=== PATIENT | female | born 1945 | race Caucasian/White ===

== ENCOUNTER 2023-11-06 11:10 | Outpatient (AMB) | payer OTHER, SELFPAY ==
--- NOTE | 2023-11-06 11:43 | A.OFFPC_ITS ---
Vital Signs 11/06/23 11:46 11/06/23 11:48 Height 5 ft 2 in Weight 171 lb 2 oz BMI 31.3 BP 148/72 H 132/74 Blood Pressure Location Rt brachial Lt brachial Position Sitting Sitting Respiration 16 Pulse 66 Pulse Source Pulse Oximeter Temp 97.7 F Temp Source Oral Pulse Oximetry (%) 99 Oxygen Delivery Method Room Air Intake Visit Reasons: SILK [employer] HAT B[employer]KER-VISIT Allergies No Known Allergies Allergy (Verified 11/06/23 11:43) Medication List - Last Reconciled 11/06/23 by MARIANA Hairston blood sugar diagnostic (Vortaluch Ultra Test strips) As directed brimonidine 0.1% (Alphagan P) 1 drp ophthalmic-Right BID carvedilol 6.25 mg PO BID furosemide 40 mg PO DAILY ketoconazole 2% 1 appl topical BID latanoprostene bunod 0.024% (Vyzulta) 1 drp ophthalmic (eye) BEDTIME losartan 25 mg PO DAILY metformin ER 1,000 mg PO BID pioglitazone 15 mg PO DAILY Tobacco use date assessed: 11/06/23 Fall risk assessment: No Falls in past year Last assessed Fall Risk: 11/06/23 Dental Screening Dental Screen Date: 11/06/23 Did you have a dental visit in the last 12 months?: No Did you have a dental problem in the last 6 months where you did not have access to dental care?: No Was dental information given to patient?: Patient declined HPI HPI Comments History of Present Illness Details 78 y/o F renal stones, BLE edema, obesit y, HTN, DM2, Rheumatic fever in childhood, HLD, OA, Urinary incont, glaucoma s/p TKR 2012 bilat Health Maintenance: Colon reports done 2020 Mammo 2022 PAP DEXA DME HgA1c Specialists: Urology - annual f/u next 07/2024 Here today new patient. No medical records. States has swelling of BLE that was present for 2 weeks, left first and then right. Resolved on own. Had renal stones - treated at [facility]. May 2023 had 2 removed then Jul 2023 had the other removed States last time she was seen by PCP was 2 years ago at [facility]) [facility] Surgical History (Updated 11/06/23 @ 13:45 by MARIANA Hairston) History of knee replacement Social History (Updated 11/06/23 @ 12:06 by Stephanie Viveros CMA) Housing: Apartment Patient Tobacco Use Status: Never used Tobacco e-Cigarette/Vaping Use: Never Used Second Hand Smoke Exposure: No service: No Current occupational status: retired Cognitive needs: No Hearing needs: No Vision needs: Yes Questionnaire PHQ-9 Over the last 2 weeks, how often have you been bothered by any of the following problems? 1. Little interest or pleasure in doing things: not at all 2. Feeling down, depressed, or hopeless: not at all 3. Trouble falling or staying asleep, or sleeping too much: not at all 4. Feeling tired or having little energy: not at all 5. Poor appetite or overeating: not at all 6. Feeling bad about yourself - or that you are a failure or have let yourself or your family down: not at all 7. Trouble concentrating on things, such as reading the newspaper or watching television: not at all 8. Moving or speaking so slowly that other people could have noticed. Or the opposite - being so fidgety or restless that you have been moving around a lot more than usual: several days 9. Thoughts that you would be better off or of hurting yourself in some way: not at all Total score: 1 Depression Screening Interpretation: Negative Depression Screening Done: Yes 51429 - PHQ-9 Billing: Yes Source: Developed by Drs. Kenn Landa, Heidi Fernandez, Eduardo Gold and colleagues, with an educational hesham from [employer]. Thrive Questionnaire Date Thrive assessed: 11/06/23 I am a: Patient What is your living situation today?: I have a steady place to live Within the past 12 months, did the food you bought not last and you didn't have the money to get more?: Never true Within the past 12 months, did you worry whether your food would run out before you got money to buy more?: Never true Do you have trouble paying for medicines?: No Do you have trouble getting transportation to medical appointments?: No Do you have trouble paying your heating and electricity bill?: No Do you have trouble taking care of your child, family member or friend?: No Do you have trouble with day-to-day activities such as bathing, preparing meals, shopping, managing finances, etc.?: No Are you currently unemployed and looking for a job?: No Are you interested in more education?: No Please select the resources that you would like help with: None Currently or been in a relationship where the following occur: no concerns reported THRIVE Score: 0 AUDIT C Alcohol Use Questionnaire (AUDIT-C) 1. How often do you have a drink containing alcohol?: Never 3. How often do you have six or more drinks on one occasion?: Never Total Score: 0 Score Reviewed/Action Taken: Yes TAWANNA-7 AMB Questionnaire TAWANNA-7 Date TAWANNA - 7 assessed: 11/06/23 Feeling nervous, anxious, or on edge: 0 = Not at all Not being able to stop or control worryin = Not at all Worrying too much about different things: 0 = Not at all Trouble relaxin = Not at all Being so restless that it is hard to sit still: 0 = Not at all Becoming easily annoyed or irritable: 0 = Not at all Feeling afraid as if something awful might happen: 0 = Not at all Total TAWANNA-7 score (0-4 normal; 5-9 mild; 10-14 moderate; 15-21 severe): 0 Source: Developed by Drs. Kenn Landa, Heidi Fernandez, Eduardo Gold and colleagues, with an educational hesham from [employer]. TAWANNA-7 Assessment Billing TAWANNA-7 Assessment Tool: TAWANNA-7 Assessment 94938 Review of Systems Const All systems reviewed & are unremarkable except as noted in HPI and below Physical exam (Primary Care) Vital Signs: Last Vital Signs Temp 97.7 F 11/06/23 11:46 Pulse 66 11/06/23 11:46 Resp 16 11/06/23 11:46 BP 132/74 11/06/23 11:48 Pulse Ox 99 11/06/23 11:46 Oxygen Delivery Method Room Air 11/06/23 11:46 BMI result Body Mass Index 31.3 BMI Assessment/Plan discussion: High BMI High, discussed plan: lifestyle Tobacco/Smoking Status: Tobacco use Status Tobacco use date assessed 11/06/23 11/06/23 11:50 Patient Tobacco Use Status Never used Tobacco 11/06/23 12:06 e-Cigarette/Vaping Use Never Used 11/06/23 12:06 PHQ-9: PHQ-9 Score PHQ-9: Total score 1 11/06/23 12:07 Depression Screening Interpretation: Negative Thrive Assessment: Date of Thrive Assessment Date Thrive assessed 11/06/23 11/06/23 12:07 Currently or been in a relationship where the following occur: no concerns reported Const Other: awake alert younger than stated age pleasant and cooperative MMM RRR LS CTAB BLE hairless, decreased PP, + varicose veins, trace pedal edema bilat, fungal rash L anterior foot & in between toes, nails thickened Assessment and Plan Assessment & Plan (1) Diabetes mellitus type 2 with atherosclerosis of arteries of extremities: Comment: On metformin ER 1000 mg p.o. b.i.d. and pioglitazone 50 mg p.o. daily. Check hemoglobin A1c. We will need to obtain records for diabetic eye exam. Code(s): E11.51 - Type 2 diabetes mellitus with diabetic peripheral angiopathy without gangrene; I70.209 - Unspecified atherosclerosis of [place] arteries of extremities, unspecified extremity (2) Class 1 obesity with serious comorbidity and body mass index (BMI) of 31.0 to 31.9 in adult: Comment: Lifestyle modification encouraged Code(s): E66.9 - Obesity, unspecified; Z68.31 - Body mass index [BMI] 31.0-31.9, adult Qualifiers: Obesity type: unspecified obesity type Qualified Code(s): E66.9 - Obesity, unspecified; Z68.31 - Body mass index [BMI] 31.0-31.9, adult (3) Hypertension complicating diabetes: Comment: Goal less than 130/80, on losartan 25 mg p.o. daily, furosemide 40 mg p.o. daily, carvedilol 6.25 mg p.o. b.i.d.. Blood pressure at goal. Continue Code(s): E11.59 - Type 2 diabetes mellitus with other circulatory complications; I15.2 - Hypertension secondary to endocrine disorders (4) Glaucoma: Comment: Currently managed on latanoprost and Alphagan. We will need to obtain records to further specify her glaucoma condition. Code(s): H40.9 - Unspecified glaucoma Qualifiers: Glaucoma type: unspecified Laterality: unspecified laterality Qualified Code(s): H40.9 - Unspecified glaucoma (5) Urinary incontinence: Comment: Encouraged hygiene, use of incontinence pads. Code(s): R32 - Unspecified urinary incontinence Qualifiers: Urinary Incontinence type: mixed stress and urge incontinence Qualified Code(s): N39.46 - Mixed incontinence (6) Hyperlipidemia associated with type 2 diabetes mellitus: Comment: LDL goal less than 70. Not currently on a statin. We will need to obtain labs and start statin Code(s): E11.69 - Type 2 diabetes mellitus with other specified complication; E78.5 - Hyperlipidemia, unspecified (7) Rheumatic fever: Comment: Reports a history of this in childhood. Reports that she has never had an echocardiogram and denies any valvular involvement. We will update echocardiogram. Code(s): I00 - Rheumatic fever without heart involvement (8) Edema: Comment: Affecting bilateral lower extremities. The patient is taking Lasix 40 mg daily. She denies a history of congestive heart failure however is a poor historian. We will update an echocardiogram, do some imaging of her lower extremities and check a proBNP today. Code(s): R60.9 - Edema, unspecified Qualifiers: Edema type: localized Qualified Code(s): R60.0 - Localized edema (9) PVD (peripheral vascular disease): Comment: Not currently on a statin or aspirin. We will check MANDO studies and returned to the office to discuss treatment. May need a referral to vascular given the varicosities and edema. Fungal rash noted to her left foot. Start ketoconazole until clear. Code(s): I73.9 - Peripheral vascular disease, unspecified Plan This note is constructed using voice recognition software. While every effort has been made to ensure accuracy in physical plant employee, still errors may have been included Sometimes, these errors may affect the content or meaning of the given sentence . Total time spent caring for the patient today was 50 minutes. This includes time spent before the visit reviewing the chart, time spent during the visit, and time spent after the visit on documentation Orders: Orders Comprehensive Met. Panel Today E11.51 - Type 2 diabetes mellitus with diabetic peripheral angiopathy without gangrene, I70.209 - Unspecified atherosclerosis of [place] arteries of extremities, unspecified extremity Hemoglobin A1c Today E11.51 - Type 2 diabetes mellitus with diabetic peripheral angiopathy without gangrene, I70.209 - Unspecified atherosclerosis of [place] arteries of extremities, unspecified extremity TSH reflex Free T4 Today E11.51 - Type 2 diabetes mellitus with diabetic peripheral angiopathy without gangrene, I70.209 - Unspecified atherosclerosis of [place] arteries of extremities, unspecified extremity CA echo transthoracic complete Today R60.9 - Edema, unspecified LDL Cholesterol Direct Today E11.51 - Type 2 diabetes mellitus with diabetic peripheral angiopathy without gangrene, I70.209 - Unspecified atherosclerosis of [place] arteries of extremities, unspecified extremity Vitamin D 1,25 dihydroxy Today E11.51 - Type 2 diabetes mellitus with diabetic peripheral angiopathy without gangrene, I70.209 - Unspecified atherosclerosis of [place] arteries of extremities, unspecified extremity Microalbumin, Random (w Creat) Today E11.51 - Type 2 diabetes mellitus with diabetic peripheral angiopathy without gangrene, I70.209 - Unspecified atheroscl erosis of [place] arteries of extremities, unspecified extremity NT-proBNP Today E11.51 - Type 2 diabetes mellitus with diabetic peripheral angiopathy without gangrene, I70.209 - Unspecified atherosclerosis of [place] arteries of extremities, unspecified extremity US MANDO complete Today R60.9 - Edema, unspecified Medications: New ketoconazole 2% apply to left foot until healed 1 appl topical BID 60 grams 1RF Patient Instructions: Return to the office in 6-8 weeks to follow up on your lab results as well as the echocardiogram and ultrasound of your bilateral lower extremities. Continue to take all medications as directed. Use the antifungal cream to your left foot until the rash is cleared. Coding Level of Care Code New Pt Level 4 (48911) Diagnoses Diabetes mellitus type 2 with atherosclerosis of arteries of extremities E11.51; I70.209 Class 1 obesity with serious comorbidity and body mass index (BMI) of 31.0 to 31.9 in adult, unspecified obesity type E66.9; Z68.31 Obesity type: unspecified obesity type Hypertension complicating diabetes E11.59; I15.2 Glaucoma, unspecified glaucoma type, unspecified laterality H40.9 Glaucoma type: unspecified Laterality: unspecified laterality Mixed stress and urge urinary incontinence N39.46 Urinary Incontinence type: mixed stress and urge incontinence Hyperlipidemia associated with type 2 diabetes mellitus E11.69; E78.5 Rheumatic fever I00 Localized edema R60.0 Edema type: localized PVD (peripheral vascular disease) I73.9 Additional Codes TAWANNA-7 Assessment Billing - TAWANNA-7 Assessment Tool: TAWANNA-7 Assessment [id number] ( [id number])
[2023-11-06 11:46] VITALS: BP 148/72; PULSE 66; RESP 16; TEMP 36.5; O2SAT 99; BMI 31.3
[2023-11-06 11:48] VITALS: BP 132/74
== END 2023-11-06 12:33 | disposition home or self-care (01) ==
PROVIDERS: PCP Nurse Practitioner Family; Visit Provider Nurse Practitioner Family
DX: E11.51 Type 2 diabetes mellitus with diabetic peripheral angiopathy without gangrene (principal); I70.209 Unspecified atherosclerosis of native arteries of extremities, unspecified extremity; E11.59 Type 2 diabetes mellitus with other circulatory complications; E11.69 Type 2 diabetes mellitus with other specified complication; I73.9 Peripheral vascular disease, unspecified; E66.9 Obesity, unspecified; Z68.31 Body mass index [BMI] 31.0-31.9, adult; H40.9 Unspecified glaucoma; I15.2 Hypertension secondary to endocrine disorders; N39.46 Mixed incontinence; E78.5 Hyperlipidemia, unspecified; I00 Rheumatic fever without heart involvement
CPT/HCPCS: 99204

== ENCOUNTER 2023-11-06 12:13 | Outpatient (REF) | payer OTHER, SELFPAY ==
[2023-11-06 15:10] LABS: Estimated Average Glucose 151 mg/dL; Hemoglobin A1C 152.5124 umol/L; Hemoglobin A1c % 6.9 % (<6.0)
[2023-11-06 15:18] LABS: Alanine Aminotransferase 6 U/L (0-31); Albumin Level 4.4 g/dL (3.5-5.0); Alkaline Phosphatase 106 U/L (39-117); Anion Gap 15 (12-20); Aspartate Amino Transferase 10 U/L (5-31); Bilirubin Total 0.3 mg/dL (0.0-1.0); Blood Urea Nitrogen 31 mg/dL (9-16); Calcium 9.8 mg/dL (8.4-10.2); Carbon Dioxide 21 mmol/L (22-29); Chloride 109 mmol/L (96-108); Estimated Glomerular Filt Rate 51; Glucose Random 128 mg/dL (60-115); Potassium 4.2 mmol/L (3.3-5.1); Sodium 141 mmol/L (135-145); Total Protein 7.8 g/dL (6.5-8.0)
[2023-11-06 15:22] LABS: Creatinine Urine 162.38 mg/dL; Microalbum/Creatinine Ratio Ur 44.9 ug/mg cr (<30)
[2023-11-06 15:36] LABS: TSH reflex Free T4 1.92 uIU/mL (0.32-4.0)
[2023-11-08 06:43] LABS: LDL Cholesterol Direct 122 mg/dL (<100)
[2023-11-11 16:27] LABS: NT-proBNP 544 pg/mL (<450)
[2023-11-12 16:14] LABS: VITAMIN D (1,25 OH) D3 35 pg/mL; Vit D (1,25-Dihydroxy) Total 35 pg/mL (18-72); Vitamin D (1,25 OH) D2 <8 pg/mL
== END 2023-11-06 12:14 | disposition home or self-care (01) ==
LOC: HO.WFDLDS 12:13
PROVIDERS: Visit Provider Nurse Practitioner Family
DX: E11.51 Type 2 diabetes mellitus with diabetic peripheral angiopathy without gangrene (principal); I70.209 Unspecified atherosclerosis of native arteries of extremities, unspecified extremity
CPT/HCPCS: 36415; 80053; 82043; 82570; 82652; 83036; 83721; 83880; 84443

== ENCOUNTER 2023-11-21 14:22 | Outpatient (REF) | payer OTHER, SELFPAY ==
--- NOTE | ~2023-11-21 | US_ITS ---
EXAMINATION: Noninvasive assessment of the arteries of both lower extremities to include a single level PVR exam and ANKLE BRACHIAL INDICES (ABIs). CLINICAL INFORMATION: Lower extremity edema TECHNIQUE: The ankle/brachial indices of the distal posterior tibial and the dorsalis pedis arteries were obtained of the lower extremity arterial system bilaterally; along with pressures and pulse volume recordings at the ankle level. The study was performed at rest. COMPARISON: None FINDINGS: 1. ANKLE-BRACHIAL INDICES: RIGHT: 1.14 LEFT: 1.13 2. ANKLE PVR WAVEFORMS: RIGHT: Normal LEFT: Normal US/US MANDO complete IMPRESSION: Normal noninvasive arterial evaluation
== END 2023-11-21 14:23 | disposition home or self-care (01) ==
LOC: HO.US 14:22
PROVIDERS: PCP Nurse Practitioner Family; Visit Provider Nurse Practitioner Family
DX: R60.9 Edema, unspecified (principal)
CPT/HCPCS: 93923

== ENCOUNTER → 2023-11-29 13:49 | Outpatient (REF) | payer OTHER, SELFPAY ==
--- NOTE | 2023-11-29 13:56 | CA_ITS ---
Transthoracic Echocardiogram Patient (Last, First, Middle): Bee Rivera, Gender: Female Date of : 1945 Age: 78 Procedure Date: 11/29/2023 Procedure Type: Transthoracic Echocardiogram Location: OP Height: 157.48 cm Weight: 77.57 kg BSA: 1.79 m2 Heart Rate: 67 bpm BP: 132 / 74 mmHg Public Records Officer: SB Referring MD: Desirae Guzmán [facility] Garden Implement Mechanic: Michale Fajardo MD Symptoms: R60.9 - Edema, unspecified Study Quality: Fair ECG Rhythm: Sinus Conclusions: - 1. Mildly reduced LV ejection fraction 45-50% with impaired relaxation filling pattern 2. Cardiac valvular Doppler within normal limits 3. Normal RV systolic pressure 4. No gross pericardial effusion Findings Procedure Information The quality of the study was technically difficult. The study quality is limited by patients body habitus. Left Ventricle Normal left ventricular cavity size. There is normal left ventricular wall thickness. The left ventricular systolic function is mildly decreased. The visually estimated ejection fraction is between 45-50%. Spectral Doppler is indicative of an impaired relaxation filling pattern. E/E prime ratio is between 8 and 15 consistent with indeterminate filling pressures. Wall Motion Rest Echo Findings The basal inferior and basal inferoseptal segments are akinetic. All other scored wall segments showed normal motion. Right Ventricle Normal right ventricular cavity size and systolic function. Atria The left atrium is mildly dilated. There is no evidence of interatrial shunt. The right atrium is normal in size. Aortic Valve There is mild calcification of the aortic valve. There is no aortic valve stenosis. There is no aortic valve regurgitation. Mitral Valve There is mild anterior and posterior mitral leaflet thickening. There is mild mitral annular calcification. There is trace mitral valve regurgitation. There is no mitral valve stenosis. Pulmonic Valve The pulmonic valve was not well visualized. Tricuspid Valve Likely normal tricuspid valve structure and function. There is trace tricuspid valve regurgitation. The right ventricular systolic pressure is normal. The right ventricular systolic pressure is 22 mmHg. Normal right atrial pressure. There is no evidence of pulmonary hypertension. Great Vessels All visible segments of the aorta are normal in size. There is no dilatation of the ascending aorta measuring 3.30 cm. Venous The inferior vena cava is normal in size and collapses greater than 50% with inspiration. Pericardium/Pleural There is no evidence of pericardial effusion. Prior Study Comparison No prior study available for comparison. Measurements 2D Linear Measurements IVSd: 1.01 0.6-0.9/0.6-1.0 cm LVIDd: 5.46 3.9-5.3/4.2-5.9 cm LVIDd Index: 3.05 2.4-3.2/2.2-3.1 cm/m2 LVIDs: 4.03 2.0-3.6 cm LVPWd: 0.87 0.7-1.1 cm LA Diam: 4.00 2.7-3.8/3.0-4.0 cm LAIDs Index: 2.23 1.5-2.3 cm/m2 LV Mass: 241.65 67-162/88-224 g LV Mass Index: 135.00 43-95/49-115 g/m2 LVOT Diam: 2.10 3.0+(-)1.3 cm 2D Systolic Function EF 4C: 40.60 >55% EF 2C: 49.70 >55% EF BiP: 46.80 >55% Mitral Valve MV Pk E: 0.51 MV PK A: 0.86 MV Decel Time: 210.00 E/A: 0.60 E'Lateral: 4.03 E'Medial: 2.94 E/E' Med: 17.30 E/E' Lat: 12.70 PHT: 61.00 MVA PHT: 3.61 Decel Towns: 2.43 Aortic Valve AoV Pk Will: 1.23 AoV Pk Grad: 6.00 MITALI: 2.13 LVOT LVOT Pk Will: 0.76 LVOT Mn Will: 0.53 LVOT VTI: 0.18 LVOT Pk Grad: 2.00 LVOT Mn Grad: 1.00 LVOT Diam: 2.10 LVOT Area: 3.46 Diastolic Function MV Pk E: 0.51 MV Pk A: 0.86 E/A: 0.60 E'Medial: 2.94 E/E' Med: 17.30 E' Laterial: 4.03 E/E' Lat: 12.70 Right Ventricle TAPSE (mm): 13.90 TVS' Will: 9.57 Tricuspid Valve TR Pk Will: 2.19 TR Pk Grad: 19.00 RA Press: 3.00 RVSP: 22.00 Great Vessels Aorta Sinus of Valsalva: 3.40 2.0-3.5 cm Ao Asc: 3.30 2.1-3.4 cm Ao Arch: 2.70 Pulmonary Veins Pulm Vein S/D 2.00 Pulmonary Valve PV Pk Will: 0.76 Peak PV Grad: 2.00 Updated in Other Vendor System with Status of Final Michael Fajardo MD electronically signed on 11/29/2023 4:53:32 PM with status of Final
== END ==
LOC: HO.CARD 13:49
PROVIDERS: PCP Nurse Practitioner Family; Visit Provider Nurse Practitioner Family
DX: R60.9 Edema, unspecified (principal)
CPT/HCPCS: 93306

== ENCOUNTER → 2023-11-29 13:56 | Outpatient (BNV) | payer OTHER, SELFPAY | PROVIDERS: PCP Nurse Practitioner Family; Visit Provider Internal Medicine Cardiovascular Disease | DX: I35.8 Other nonrheumatic aortic valve disorders (principal); I34.81 Nonrheumatic mitral (valve) annulus calcification | CPT/HCPCS: 93306 ==

== ENCOUNTER 2023-12-29 09:45 | Outpatient (AMB) | payer OTHER, SELFPAY ==
--- NOTE | 2023-12-29 10:02 | MHC.PC.OV ---
Vital Signs 12/29/23 10:16 Height 4 ft 11.45 in Weight 171 lb 4 oz BMI 34.1 BP 126/66 Blood Pressure Location Rt brachial Position Sitting Respiration 22 H Pulse 69 Pulse Source Pulse Oximeter Pulse Oximetry (%) 97 Oxygen Delivery Method Room Air Intake Visit Reasons: 6-8 weeks FU labs, echo and vascular imaging Intake Note: follow up Is last menstrual period known: No Post menopausal: Yes Patient : No Allergies No Known Allergies Allergy (Verified 12/29/23 10:07) Medication List - Last Reconciled 12/29/23 by Desirae Guzmán, [employer]UTTLE [employer]ENEERING SUPERVISOR- atorvastatin 80 mg PO BEDTIME blood sugar diagnostic ([employer] Ultra Test strips) As directed carvedilol 6.25 mg PO BID carvedilol 6.25 mg PO BID furosemide 40 mg PO DAILY ketoconazole 2% 1 appl topical BID lisinopril 20 mg PO DAILY metformin ER 1,000 mg PO BID Tobacco use date assessed: 12/29/23 Fall risk assessment: No Falls in past year Dental Screening Dental Screen Date: 12/29/23 Did you have a dental visit in the last 12 months?: No Did you have a dental problem in the last 6 months where you did not have access to dental care?: No Was dental information given to patient?: Patient declined HPI HPI Comments History of Present Illness Details 78 y/o F renal stones, BLE edema, obesity, HTN, DM2, Rheumatic fever in childhood, HLD, OA, Urinary incont, glaucoma, ckd 3a s/p TKR 2012 bilat Health Maintenance: Colon reports done 2020 Mammo 2022 PAP DEXA DME records requested HgA1c up to date Specialists: Urology - annual f/u next 07/[address] Nation Ophthalmology Here today for routine follow up of chronic conditions. I reviewed with her the results of her echocardiogram as well as the ultrasound of her lower extremities. In addition I did review her labs with her. In regards to the echocardiogram she tells me that she is active with Cardiology. I did not know that prior to today. States she is scheduled to have stress test but does not want this to be done; cannot exercise and does not want the injection, had this in the past & did not tolerate. She does not want me to call Cards to let them know about this. HOwever is ok w/ me faxing over a copy of the recent Echo. No longer having any swelling in BLE; using the Lasix only as needed. Has not needed since I last saw her. LDL goal less than 70. She IS on a statin, atorvastatin 80mg QD. However her LDL is not at goal. She is also on an ACEI Lisinopril 20mg and her blood pressure is well controlled. She has very mild elevation in her microalbumin. Fungal rash noted to her left foot resolved with ketoconazole Diabetes well controlled on metformin. Tells me today she needs a new prescription for freestyle Lite glucometer test strips and lancets. New complaints of: Nose is running all of the time. Clear liquid. Has not used any @ home treatment to help. Boil to her right shoulder that started a few days ago. Reports that she gets these a few times a year. The areas painful and has purulent drainage. Labs from 11/08/2023 show normal electrolytes, BUN 31, creatinine 1.05, EGFR 51, random glucose 128, hemoglobin A1c 6.9%, normal LFTs, pro BNP mildly elevated 544, direct LDL 122, vitamin-D normal, TSH 1.92, elevated urine microalbumin creatinine ratio 44.9 Exam: awake alert younger than stated age pleasant and cooperative scleras nonicteric bilat TM intact and clear bilat Nares with clear drainage bilat, turbinates pale and edematous Post nasal gtt MMM RRR LS CTAB BLE hairless, decreased PP, + varicose veins, no pedal edema bilat, fungal rash L anterior foot & in between toes (resolved), nails thickened Right anterior shoulder is a soft tissue cyst, erythematous, foul smelling, mildly warm to touch Plan: Stop atorvastatin 80mg and start rosuvastatin 20mg Start flonase to help w/ chronic rhinitis Start doxycycline for boil on R shoulder, apply warm moist comps to area. RTO directions provided. New RX for freestyle lite glu with strips and lancets sent Continue all of the medications as directed. If any worsening of renal function or microalbuminuria could consider adding an SGLT2 to at the next office visit. Fax Echo to Dr Nation, please /fu with them re: stress testing RTO in Mar/Apr for routine fu with labs done 1 week before appt Total time spent caring for the patient today was 40 minutes. This includes time spent before the visit reviewing the chart, time spent during the visit, and time spent after the visit on documentation This note is constructed using voice recognition software. While every effort has been made to ensure accuracy in corn miller, still errors may have been included Sometimes, these errors may affect the content or meaning of the given sentence . [facility] Surgical History (Updated 11/06/23 @ 13:45 by Desirae Guzmán [facility]) History of knee replacement Social History (Updated 12/29/23 @ 10:13 by Eric Álvarez) Housing: Apartment Patient Tobacco Use Status: Never used Tobacco e-Cigarette/Vaping Use: Never Used Second Hand Smoke Exposure: No service: No Current occupational status: retired Cognitive needs: No Hearing needs: No Vision needs: Yes Questionnaire Thrive Questionnaire Date Thrive assessed: 11/06/23 TAWANNA-7 AMB Questionnaire TAWANNA-7 Date TAWANNA - 7 assessed: 11/06/23 Source: Developed by Drs. Kenn Landa, Heidi Fernandez, Eduardo Gold and colleagues, with an educational hesham from [employer]. Physical exam (Primary Care) Vital Signs: Last Vital Signs Pulse 69 12/29/23 10:16 Resp 22 H 12/29/23 10:16 BP 126/66 12/29/23 10:16 Pulse Ox 97 12/29/23 10:16 Oxygen Delivery Method Room Air 12/29/23 10:16 BMI result Body Mass Index 34.1 Tobacco/Smoking Status: Tobacco use Status Tobacco use date assessed 12/29/23 12/29/23 10:13 Patient Tobacco Use Status Never used Tobacco 12/29/23 10:13 e-Cigarette/Vaping Use Never Used 12/29/23 10:13 Thrive Assessment: Date of Thrive Assessment Date Thrive assessed 11/06/23 12/29/23 10:02 Results Reviewed Results Reviewed: 11/2023 normal vascular US 11/2023 Echo Wall Motion Rest Echo Findings The basal inferior and basal inferoseptal segments are akinetic. All other scored wall segments showed normal motion. Right Ventricle Normal right ventricular cavity size and systolic function. Atria The left atrium is mildly dilated. There is no evidence of interatrial shunt. The right atrium is normal in size. Aortic Valve There is mild calcification of the aortic valve. There is no aortic valve stenosis. There is no aortic valve regurgitation. Mitral Valve There is mild anterior and posterior mitral leaflet thickening. There is mild mitral annular calcification. There is trace mitral valve regurgitation. There is no mitral valve stenosis. Pulmonic Valve The pulmonic valve was not well visualized. Tricuspid Valve Likely normal tricuspid valve structure and function. There is trace tricuspid valve regurgitation. The right ventricular systolic pressure is normal. The right ventricular systolic pressure is 22 mmHg. Normal right atrial pressure. There is no evidence of pulmonary hypertension. Great Vessels All visible segments of the aorta are normal in size. There is no dilatation of the ascending aorta measuring 3.30 cm. Venous The inferior vena cava is normal in size and collapses greater than 50% with inspiration. Pericardium/Pleural There is no evidence of pericardial effusion. Assessment and Plan Assessment & Plan (1) Diabetes mellitus type 2 with atherosclerosis of arteries of extremities: Comment: On metformin ER 1000 mg p.o. b.i.d., We will need to obtain records for diabetic eye exam. Code(s): E11.51 - Type 2 diabetes mellitus with diabetic peripheral angiopathy without gangrene; I70.209 - Unspecified atherosclerosis of sycuan arteries of extremities, unspecified extremity (2) Hypertension complicating diabetes: Comment: Goal less than 130/80, on losartan 25 mg p.o. daily, carvedilol 6.25 mg p.o. b.i.d.. Blood pressure at goal. Continue Code(s): E11.59 - Type 2 diabetes mellitus with other circulatory complications; I15.2 - Hypertension secondary to endocrine disorders (3) Hyperlipidemia associated with type 2 diabetes mellitus: Comment: LDL goal less than 70. Code(s): E11.69 - Type 2 diabetes mellitus with other specified complication; E78.5 - Hyperlipidemia, unspecified (4) CKD (chronic kidney disease) stage 3, GFR 30-59 ml/min: Code(s): N18.30 - Chronic kidney disease, stage 3 unspecified Qualifiers: Chronic kidney disease stage 3 subtype: stage 3a (GFR 45-59) Qualified Code(s): N18.31 - Chronic kidney disease, stage 3a (5) Chronic rhinitis: Code(s): J31.0 - Chronic rhinitis (6) Acute cellulitis: Code(s): L03.90 - Cellulitis, unspecified Orders: Orders Comprehensive Met. Panel 03/05/24 E11.51 - Type 2 diabetes mellitus with diabetic peripheral angiopathy without gangrene, E11.59 - Type 2 diabetes mellitus with other circulatory complications, E11.69 - Type 2 diabetes mellitus with other specified complication, E78.5 - Hyperlipidemia, unspecified, I15.2 - Hypertension secondary to endocrine disorders, I70.209 - Unspecified atherosclerosis of sycuan arteries of extremities, unspecified extremity Hemoglobin A1c 03/05/24 E11.51 - Type 2 diabetes mellitus with diabetic peripheral angiopathy without gangrene, E11.59 - Type 2 diabetes mellitus with other circulatory complications, E11.69 - Type 2 diabetes mellitus with other specified complication, E78.5 - Hyperlipidemia, unspecified, I15.2 - Hypertension secondary to endocrine disorders, I70.209 - Unspecified atherosclerosis of sycuan arteries of extremities, unspecified extremity Microalbumin, Random (w Creat) 03/05/24 E11.51 - Type 2 diabetes mellitus with diabetic peripheral angiopathy without gangrene, E11.59 - Type 2 diabetes mellitus with other circulatory complications, E11.69 - Type 2 diabetes mellitus with other specified complication, E78.5 - Hyperlipidemia, unspecified, I15.2 - Hypertension secondary to endocrine disorders, I70.209 - Unspecified atherosclerosis of sycuan arteries of extremities, unspecified extremity LDL Cholesterol Direct 03/05/24 E11.51 - Type 2 diabetes mellitus with diabetic peripheral angiopathy without gangrene, E11.59 - Type 2 diabetes mellitus with other circulatory complications, E11.69 - Type 2 diabetes mellitus with other specified complication, E78.5 - Hyperlipidemia, unspecified, I15.2 - Hypertension secondary to endocrine disorders, I70.209 - Unspecified atherosclerosis of sycuan arteries of extremities, unspecified extremity Medications: New rosuvastatin 20 mg PO DAILY 90 tabs 1RF doxycycline hyclate 100 mg PO BID 7 days 14 caps 0RF blood-glucose meter (FreeStyle Lite Meter kit) As directed 1 ea 0RF E11.8 - Type 2 diabetes mellitus with unspecified complications lancets (FreeStyle Lancets) As directed 100 ea 11RF E11.8 - Type 2 diabetes mellitus with unspecified complications fluticasone propionate 50 mcg/actuation administer into each nostril 1 spray intranasal BID 16 grams 12RF blood sugar diagnostic (FreeStyle Lite Strips) As directed 100 ea 11RF E11.8 - Type 2 diabetes mellitus with unspecified complications Coding Level of Care Code Est Pt Level 5 (29685) Diagnoses Diabetes mellitus type 2 with atherosclerosis of arteries of extremities E11.51; I70.209 Hypertension complicating diabetes E11.59; I15.2 Hyperlipidemia associated with type 2 diabetes mellitus E11.69; E78.5 Stage 3a chronic kidney disease N18.31 Chronic kidney disease stage 3 subtype: stage 3a (GFR 45-59) Chronic rhinitis J31.0 Acute cellulitis L03.90
[2023-12-29 10:16] VITALS: BP 126/66; PULSE 69; RESP 22; O2SAT 97; BMI 34.1
== END 2023-12-29 10:51 | disposition home or self-care (01) ==
PROVIDERS: PCP Nurse Practitioner Family; Visit Provider Nurse Practitioner Family
DX: E11.51 Type 2 diabetes mellitus with diabetic peripheral angiopathy without gangrene (principal); I70.209 Unspecified atherosclerosis of native arteries of extremities, unspecified extremity; E11.59 Type 2 diabetes mellitus with other circulatory complications; E11.69 Type 2 diabetes mellitus with other specified complication; N18.31 Chronic kidney disease, stage 3a; I15.2 Hypertension secondary to endocrine disorders; E78.5 Hyperlipidemia, unspecified; J31.0 Chronic rhinitis; L03.90 Cellulitis, unspecified
CPT/HCPCS: 99215

== ENCOUNTER 2024-04-01 09:25 | Outpatient (AMB) | payer OTHER, SELFPAY ==
--- NOTE | 2024-04-01 07:26 | A.OFFPC_ITS ---
Vital Signs 04/01/24 09:31 Height 5 ft 2 in Weight 168 lb 2 oz BMI 30.7 BP 132/72 Blood Pressure Location Lt brachial Position Sitting Respiration 13 Pulse 69 Pulse Source Pulse Oximeter Pulse Oximetry (%) 99 Oxygen Delivery Method Room Air Intake Visit Reasons: FU chronic conditions Intake Note: follow up Allergies No Known Allergies Allergy (Verified 04/01/24 09:40) Medication List - Last Reconciled 04/01/24 by Desirae Guzmán [facility]- aspirin 81 mg PO DAILY blood sugar diagnostic (One[employer] Ultra Test strips) As directed blood sugar diagnostic (FreeStyle Lite Strips) As directed blood-glucose meter (FreeStyle Lite Meter kit) As directed carvedilol 6.25 mg PO BID fluticasone propionate 50 mcg/actuation 1 spray intranasal BID furosemide 40 mg PO DAILY ketoconazole 2% 1 appl topical BID lancets (FreeStyle Lancets) As directed lisinopril 20 mg PO DAILY metformin ER 1,000 mg (2 x 500 mg) PO BID 90 days rosuvastatin 20 mg PO DAILY Tobacco use date assessed: 12/29/23 Dental Screening Dental Screen Date: 12/29/23 HPI HPI Comments History of Present Illness Details 78 y/o F renal stones, BLE edema, obesit y, HTN, DM2, Rheumatic fever in childhood, HLD, OA, Urinary incont, glaucoma, ckd 3a, CAD WITH SEVERE CALCIFICATIONS OF CHEST, CHF, pulmonary hypertension, peripheral neuropathy s/p TKR 2012 bilat Health Maintenance: Colon reports done 2020 Mammo 2022 PAP DEXA DME records requested Tdap Flu declined 03/2024 Echocardiogram 02/07/2023 mild concentric left ventricular hypertrophy, grade 1 mild diastolic dysfunction with impaired LV relaxation, ejection fraction 55- 60%, mild mitral regurgitation Specialists: Urology - annual f/u next 07/[address] Nation Ophthalmology Here today for routine follow up of chronic conditions. Unfortunately she was unable to get her labs done prior to today's visit. Be that as it may she is tolerating compliant of all of her medications. She states that her blood sugars are averaging around 130 mg/dL. Her A1c did come back at 6.9%. She denies any hyper or hypoglycemia. Denies any urinary complaints Her lipid panel was not at goal at her last set of labs. I started her on rosuvastatin which she states that she was taking and tolerating well. She had a recent follow up with her energy project engineer, Dr Nation, 03/21/2024. This consult w as reviewed along with the last 1 from December of 2023. Patient reports that she will need a new energy project engineer due to insurance changes. She denies any cardiac complaints. She denies any chest pain, shortness of breath. She reports that the edema in bilateral lower extremities is good. She was able to go up and down the stairs without wheezing or shortness of breath. She is also not having any exertional chest pain. Does c/o some dry throat/cough d/t ACEI using lozenge and h20 with + effect She is taking aspirin daily. She does complain of some senile purpura. Her seasonal allergies are better improve with the use of Flonase She worries about memory loss. Reports that she forgets things. Feels like this has been happening over the last 6 months or so. Exam: awake alert younger than stated age pleasant and cooperative scleras nonicteric bilat MMM RRR LS CTAB BLE hairless, decreased PP, + varicose veins, no pedal edema bilat,nails thickened, abnormal vibratory and monofilament bilat worse on L great toe Purpura right wrist Mood and affect appropriate 6 CIT performed and scored 08/02 Plan Refer to [facility] Get labs done today Discuss with her her memory concerns. Her 6 CIT was reassuring. Offered to do a sleep study and or check her hearing. She does not wish to pursue this at this time. Continue all medications as currently prescribed Reassured about senile purpura. Continue aspirin. Exam today c/w DM peripheral neuropathy. This is not bothersome to her. Monitor skin integrity. RTO 4 months routine fu sooner PRN This note is constructed using voice recognition software. While every effort has been made to ensure accuracy in cyber systems administrator, still errors may have been included Sometimes, these errors may affect the content or meaning of the given sentence . Total time spent caring for the patient today was 47 minutes. This includes time spent before the visit reviewing the chart, time spent during the visit, and time spent after the visit on documentation [facility] Surgical History (Updated 11/06/23 @ 13:45 by SANDRITA Hairston) History of knee replacement Social History (Updated 12/29/23 @ 10:13 by Eric Álvarez [facility]) Housing: Apartment Patient Tobacco Use Status: Never used Tobacco e-Cigarette/Vaping Use: Never Used Second Hand Smoke Exposure: No service: No Current occupational status: retired Cognitive needs: No Hearing needs: No Vision needs: Yes Questionnaire Thrive Questionnaire Date Thrive assessed: 11/06/23 TAWANNA-7 AMB Questionnaire TAWANNA-7 Date TAWANNA - 7 assessed: 11/06/23 Source: Developed by Drs. Kenn Landa, Heidi Fernandez, Eduardo Gold and colleagues, with an educational hesham from [employer]. Physical exam (Primary Care) Vital Signs: Last Vital Signs Pulse 69 04/01/24 09:31 Resp 13 04/01/24 09:31 BP 132/72 04/01/24 09:31 Pulse Ox 99 04/01/24 09:31 Oxygen Delivery Method Room Air 04/01/24 09:31 BMI result Body Mass Index 30.7 Tobacco/Smoking Status: Tobacco use Status Tobacco use date assessed 12/29/23 04/01/24 07:26 Patient Tobacco Use Status Never used Tobacco 04/01/24 07:26 e-Cigarette/Vaping Use Never Used 04/01/24 07:26 Thrive Assessment: Date of Thrive Assessment Date Thrive assessed 11/06/23 04/01/24 07:26 Office Procedures Diabetic Foot Exam G9226 - Diabetic Foot Exam Coding Level of Care Code Est Pt Level 5 (94358) Complex EM visit Add On G2211 Diagnoses Diabetes mellitus type 2 with atherosclerosis of arteries of extremities E11.51; I70.209 Chronic systolic congestive heart failure I50.22 Heart failure type: systolic Heart failure chronicity: chronic Coronary artery disease involving cherokee coronary artery of cherokee heart without angina pectoris I25.10 Coronary Disease-Associated Artery/Lesion type: cherokee artery [place] vs. transplanted heart: cherokee heart Associated angina: without angina Chronic rhinitis J31.0 Stage 3a chronic kidney disease N18.31 Chronic kidney disease stage 3 subtype: stage 3a (GFR 45-59) PVD (peripheral vascular disease) I73.9 Hyperlipidemia associated with type 2 diabetes mellitus E11.69; E78.5 Hypertension complicating diabetes E11.59; I15.2 Pulmonary hyperinflation R09.89 Diabetic peripheral neuropathy E11.42 CPT Codes Diabetic Foot Exam - CPT: G9226 - Diabetic Foot Exam ([id number]) Assessment & Plan Assessment & Plan (1) Diabetes mellitus type 2 with atherosclerosis of arteries of extremities: Comment: On metformin ER 1000 mg p.o. b.i.d., We will need to obtain records for diabetic eye exam. Code(s): E11.51 - Type 2 diabetes mellitus with diabetic peripheral angiopathy without gangrene; I70.209 - Unspecified atherosclerosis of cherokee arteries of extremities, unspecified extremity Category: Medical Plan: . (2) CHF (congestive heart failure): Code(s): I50.9 - Heart failure, unspecified Category: Medical Qualifiers: Heart failure type: systolic Heart failure chronicity: chronic Qualified Code(s): I50.22 - Chronic systolic (congestive) heart failure Plan: . (3) CAD (coronary artery disease): Comment: . Code(s): I25.10 - Atherosclerotic heart disease of cherokee coronary artery without angina pectoris Category: Medical Qualifiers: Coronary Disease-Associated Artery/Lesion type: cherokee artery [place] vs. transplanted heart: cherokee heart Associated angina: without angina Qualified Code(s): I25.10 - Atherosclerotic heart disease of cherokee coronary artery without angina pectoris Plan: . (4) Chronic rhinitis: Code(s): J31.0 - Chronic rhinitis Category: Medical Plan: . (5) CKD (chronic kidney disease) stage 3, GFR 30-59 ml/min: Code(s): N18.30 - Chronic kidney disease, stage 3 unspecified Category: Medical Qualifiers: Chronic kidney disease stage 3 subtype: stage 3a (GFR 45-59) Qualified Code(s): N18.31 - Chronic kidney disease, stage 3a Plan: . (6) PVD (peripheral vascular disease): Code(s): I73.9 - Peripheral vascular disease, unspecified Category: Medical Plan: . (7) Hyperlipidemia associated with type 2 diabetes mellitus: Comment: LDL goal less than 70. Code(s): E11.69 - Type 2 diabetes mellitus with other specified complication; E78.5 - Hyperlipidemia, unspecified Category: Medical Plan: . (8) Hypertension complicating diabetes: Comment: Goal less than 130/80, on losartan 25 mg p.o. daily, carvedilol 6.25 mg p.o. b.i.d.. Blood pressure at goal. Continue Code(s): E11.59 - Type 2 diabetes mellitus with other circulatory complications; I15.2 - Hypertension secondary to endocrine disorders Category: Medical Plan: . (9) Pulmonary hyperinflation: Code(s): R09.89 - Other specified symptoms and signs involving the circulatory and respiratory systems Category: Medical Plan: . (10) Diabetic peripheral neuropathy: Code(s): E11.42 - Type 2 diabetes mellitus with diabetic polyneuropathy Category: Medical Plan: . Plan . Orders: Orders AMB Hemoglobin A1c Today E11.51 - Type 2 diabetes mellitus with diabetic peripheral angiopathy without gangrene, I70.209 - Unspecified atherosclerosis of cherokee arteries of extremities, unspecified extremity AMB Diabetic Foot Exam Today E11.51 - Type 2 diabetes mellitus with diabetic peripheral angiopathy without gangrene, I70.209 - Unspecified atherosclerosis of cherokee arteries of extremities, unspecified extremity Referrals Cardiology Referral I25.10 - Atherosclerotic heart disease of cherokee coronary artery without angina pectoris, I50.9 - Heart failure, unspecified
[2024-04-01 09:31] VITALS: BP 132/72; PULSE 69; RESP 13; O2SAT 99; BMI 30.7
== END 2024-04-01 10:03 | disposition home or self-care (01) ==
PROVIDERS: PCP Nurse Practitioner Family; Visit Provider Nurse Practitioner Family
DX: E11.51 Type 2 diabetes mellitus with diabetic peripheral angiopathy without gangrene (principal); I70.209 Unspecified atherosclerosis of native arteries of extremities, unspecified extremity; I50.22 Chronic systolic (congestive) heart failure; E11.59 Type 2 diabetes mellitus with other circulatory complications; N18.31 Chronic kidney disease, stage 3a; I25.10 Atherosclerotic heart disease of native coronary artery without angina pectoris; J31.0 Chronic rhinitis; I73.9 Peripheral vascular disease, unspecified; E11.69 Type 2 diabetes mellitus with other specified complication; E78.5 Hyperlipidemia, unspecified; I15.2 Hypertension secondary to endocrine disorders; E11.42 Type 2 diabetes mellitus with diabetic polyneuropathy; R09.89 Other specified symptoms and signs involving the circulatory and respiratory systems

== ENCOUNTER 2024-04-01 10:10 | Outpatient (REF) | payer OTHER, SELFPAY ==
[2024-04-01 11:43] LABS: Estimated Average Glucose 151 mg/dL; Hemoglobin A1C 157.3081 umol/L; Hemoglobin A1c % 6.9 % (<6.0); Total Hemoglobin (HGBA1C) 3027.8873 umol/L
[2024-04-03 08:17] LABS: LDL Cholesterol Direct 46 mg/dL (<100)
== END 2024-04-01 10:11 | disposition home or self-care (01) ==
LOC: HO.WFDLDS 10:10
PROVIDERS: Visit Provider Nurse Practitioner Family
DX: E11.69 Type 2 diabetes mellitus with other specified complication (principal); E78.5 Hyperlipidemia, unspecified; E11.59 Type 2 diabetes mellitus with other circulatory complications; I15.2 Hypertension secondary to endocrine disorders; E11.51 Type 2 diabetes mellitus with diabetic peripheral angiopathy without gangrene; I70.209 Unspecified atherosclerosis of native arteries of extremities, unspecified extremity
CPT/HCPCS: 36415; 83036; 83721

== ENCOUNTER 2024-06-19 09:03 | Outpatient (AMB) | payer OTHER, SELFPAY ==
--- NOTE | 2024-06-19 09:10 | A.OFFPC_ITS ---
Vital Signs 06/19/24 09:14 06/19/24 09:33 Height 5 ft 2 in Weight 164 lb 8 oz BMI 30.1 BP 142/76 H 130/62 Blood Pressure Location Rt brachial Rt brachial Position Sitting Right Lateral Respiration 13 Pulse 61 Pulse Source Pulse Oximeter Pulse Oximetry (%) 99 Oxygen Delivery Method Room Air Intake Visit Reasons: Pre op Eye Surgery Intake Note: Pre op visit for eye surgery Manager Of Recruiting Required: No Allergies No Known Allergies Allergy (Verified 06/19/24 09:11) Medication List - Last Reconciled 06/19/24 by Desirae Guzmán, [facility]- aspirin 81 mg PO DAILY blood sugar diagnostic (OneTouch Ultra Test strips) As directed blood sugar diagnostic (FreeStyle Lite Strips) As directed blood-glucose meter (FreeStyle Lite Meter kit) As directed carvedilol 6.25 mg PO BID fluticasone propionate 50 mcg/actuation 1 spray intranasal BID furosemide 40 mg PO DAILY ketoconazole 2% 1 appl topical BID lancets (FreeStyle Lancets) As directed lisinopril 20 mg PO DAILY metformin ER 1,000 mg (2 x 500 mg) PO BID 90 days rosuvastatin 20 mg PO DAILY Tobacco use date assessed: 12/29/23 Dental Screening Dental Screen Date: 12/29/23 HPI HPI Comments History of Present Illness Details 78 y/o F renal stones, BLE edema, obesit y, HTN, DM2, Rheumatic fever in childhood, HLD, OA, Urinary incont, glaucoma, ckd 3a, CAD WITH SEVERE CALCIFICATIONS OF CHEST, CHF, pulmonary hypertension, peripheral neuropathy s/p TKR 2012 bilat Flu declined 03/2024 Echocardiogram 02/07/2023 mild concentric left ventricular hypertrophy, grade 1 mild diastolic dysfunction with impaired LV relaxation, ejection fraction 55- 60%, mild mitral regurgitation Here today for preoperative clearance. Surgery Type: Cataract extraction with intra-ocular lens implants L, Anesthesia Type: Topical Surgeon: Dr. Correa Date: 06/24/2024 Left eye, Right eye to be done 07/2024 Any past surgical procedures: yes Any complications from anesthesia or in post-op period: denies ASA or NSAID Use: no Current smoker: no Alcohol use: no Drug use: no METs: > 4 climb flight of stairs, golf, walk, yardwork Medical history: Asthma Y COPD N Obesity BMI 30.1 Diabetes Y Results: Labs today WNL EKG: Sinus debora otherwise WNL Exam: awake alert younger than stated age pleasant and cooperative scleras nonicteric bilat MMM RRR LS CTAB BLE hairless, decreased PP, + varicose veins, no pedal edema bilat,nails thickened, abnormal vibratory and monofilament bilat worse on L great toe Mood and affect appropriate I discussed with the patient the requirements for preoperative clearance, including the importance of obtaining an EKG due to her cardiac history and the need for a comprehensive metabolic profile. I clarified that her blood work and electrocardiogram must be completed for me to fax the surgical clearance to Dr. Correa. I assured her that I would contact her and Dr. Correa's office only in the event of problematic test results. I instructed her to proceed with the clearance protocol to ensure timely completion before her scheduled surgery date. Education Aspirin and NSAIDS should be discontinued one week before surgery to prevent excessive bleeding. If you are a smoker, there is increase risk of post surgical complications. Cessation is encouraged. Follow up with surgeon and all recommendations pre and post operatively. The patient is medically cleared. This note is constructed using voice recognition software. While every effort has been made to ensure accuracy in insecticide mixer, still errors may have been included Sometimes, these errors may affect the content or meaning of the given sentence . Total time spent caring for the patient today was 40 minutes. This includes time spent before the visit reviewing the chart, time spent during the visit, and time spent after the visit on documentation [facility] Surgical History (Updated 11/06/23 @ 13:45 by Desirae Guzmán, [facility]) History of knee replacement Social History (Updated 12/29/23 @ 10:13 by Eric Álvarez [facility]) Housing: Apartment Patient Tobacco Use Status: Never used Tobacco e-Cigarette/Vaping Use: Never Used Second Hand Smoke Exposure: No service: No Current occupational status: retired Cognitive needs: No Hearing needs: No Vision needs: Yes Questionnaire PHQ-9 Over the last 2 weeks, how often have you been bothered by any of the following problems? 1. Little interest or pleasure in doing things: not at all 2. Feeling down, depressed, or hopeless: not at all 3. Trouble falling or staying asleep, or sleeping too much: not at all 4. Feeling tired or having little energy: several days 5. Poor appetite or overeating: several days 6. Feeling bad about yourself - or that you are a failure or have let yourself or your family down: not at all 7. Trouble concentrating on things, such as reading the newspaper or watching television: not at all 8. Moving or speaking so slowly that other people could have noticed. Or the opposite - being so fidgety or restless that you have been moving around a lot more than usual: not at all 9. Thoughts that you would be better off or of hurting yourself in some way: not at all Total score: 2 Depression Screening Interpretation: Negative Depression Screening Done: Yes 62570 - PHQ-9 Billing: Yes Source: Developed by Drs. Kenn Landa, Heidi Fernandez, Eduardo Gold and colleagues, with an educational hesham from [employer]. Thrive Questionnaire Date Thrive assessed: 06/19/24 I am a: Patient What is your living situation today?: I have a steady place to live Within the past 12 months, did the food you bought not last and you didn't have the money to get more?: Never true Within the past 12 months, did you worry whether your food would run out before you got money to buy more?: Never true Do you have trouble paying for medicines?: Yes Do you have trouble getting transportation to medical appointments?: No Do you have trouble paying your heating and electricity bill?: No Do you have trouble taking care of your child, family member or friend?: No Do you have trouble with day-to-day activities such as bathing, preparing meals, shopping, managing finances, etc.?: I choose not to answer this question Are you currently unemployed and looking for a job?: No Are you interested in more education?: No Please select the resources that you would like help with: Paying for medicine Currently or been in a relationship where the following occur: No concerns reported THRIVE Score: 0 AUDIT C Alcohol Use Questionnaire (AUDIT-C) 1. How often do you have a drink containing alcohol?: Never Total Score: 0 Score Reviewed/Action Taken: Yes TAWANNA-7 AMB Questionnaire TAWANNA-7 Date TAWANNA - 7 assessed: 06/19/24 Feeling nervous, anxious, or on edge: 0 = Not at all Not being able to stop or control worryin = Not at all Worrying too much about different things: 0 = Not at all Trouble relaxin = Not at all Being so restless that it is hard to sit still: 0 = Not at all Becoming easily annoyed or irritable: 0 = Not at all Feeling afraid as if something awful might happen: 0 = Not at all Total TAWANNA-7 score (0-4 normal; 5-9 mild; 10-14 moderate; 15-21 severe): 0 Source: Developed by Drs. Kenn Landa, Heidi Fernandez, Eduardo Gold and colleagues, with an educational hesham from [employer]. TAWANNA-7 Assessment Billing TAWANNA-7 Assessment Tool: TAWANNA-7 Assessment 52637 Physical exam (Primary Care) Vital Signs: Last Vital Signs Pulse 61 06/19/24 09:14 Resp 13 06/19/24 09:14 BP 130/62 06/19/24 09:33 Pulse Ox 99 06/19/24 09:14 Oxygen Delivery Method Room Air 06/19/24 09:14 BMI result Body Mass Index 30.1 BMI Assessment/Plan discussion: High BMI High, discussed plan: lifestyle Tobacco/Smoking Status: Tobacco use Status Tobacco use date assessed 12/29/23 06/19/24 09:13 Patient Tobacco Use Status Never used Tobacco 06/19/24 09:13 e-Cigarette/Vaping Use Never Used 06/19/24 09:13 PHQ-9: PHQ-9 Score PHQ-9: Total score 2 06/19/24 09:31 Depression Screening Interpretation: Negative Thrive Assessment: Date of Thrive Assessment Date Thrive assessed 06/19/24 06/19/24 09:13 Currently or been in a relationship where the following occur: No concerns reported Results Reviewed Results Reviewed: RUN: 06/19/24 1722 PAGE 1 [facility] [address] [place] [id number] Fish Header: Mark Urena M.D. Specimen Inquiry Name: Bee Rivera Age/Sex: 78/F [facility] 1945 [id number] Unit#: [id number] Attend Dr: Desirae Guzmán [facility] Re06/19/24 Status: REG REF Location: [facility] Disch: SPEC : [id number] FRENCH: 06/19/24 STATUS: COMP REQ : [id number] RECD: 06/19/[address]: Desirae Guzmán [facility] COMP: 06/19/24 ENTERED: 06/19/24 [facility] DR: ORDERED: CMP, Lipid Panel Test Result Flag Reference Sodium 142 135-145 mmol/L Potassium 4.8 3.3-5.1 mmol/L Slight Hemolysis.Interpret result with caution. CL 113 H 96-108 mmol/L CO2 22 22-29 mmol/L Gap 12 12-20 BUN 23 H 9-16 mg/dL Creat 1.17 0.5-1.4 mg/dL eGFR 45 Chronic Kidney Disease: Estimated GFR < 60 mL/min/1.73m2 Severe Kidney Disease: Estimated GFR < 15 mL/min/1.73m2 Glucose, Random 135 H 60-115 mg/dL CA 9.1 # 8.4-10.2 mg/dL Total Bili 0.6 0.0-1.0 mg/dL AST (GOT) 25 5-31 U/L Slight Hemolysis.Interpret result with caution. ALT (GPT) 11 0-31 U/L Protein, Total 7.5 6.5-8.0 g/dL Alb 4.3 3.5-5.0 g/dL Triglyceride 122 <150 mg/dL Desirable Triglyceride: less than 150 mg/dL Borderline High Triglyceride 150-199 mg/dL High Triglyceride: 200-499 mg/dL Very High Triglyceride: greater than or equal to 5OO mg/dL Cholesterol 98 <200 mg/dL Desirable Cholesterol: less than 200 mg/dL Borderline High Cholesterol: 200-239 mg/dL High Cholesterol: greater than 239 mg/dL LDL Calculated 32 <100 mg/dL Desirable LDL: less than 100 mg/dL Near Optimal/Above Optimal LDL: 110-129 mg/dL Borderline High LDL: 130-159 mg/dL High LDL: 160-189 mg/dL Very High LDL: greater than or equal to 190 mg/dL HDL 42 >40 mg/dL Desirable HDL: greater than 40 mg/dL Note: This HDL assay may give artificially low results in patients with liver disease. Alk Phos 80 39-117 U/L END OF REPORT RUN: 06/19/24 4432 PAGE 1 [facility] [address] [place] [id number] Fish Header: Mark Urena M.D. Specimen Inquiry Name: Bee Rivera Age/Sex: 78/F : 1945 Unit#: [id number] Attend Dr: Desirae Guzmán Re06/19/24 Status: REG REF Location: [id number] Disch: SPEC : [id number] FRENCH: 06/19/24 STATUS: COMP REQ : [id number] RECD: 06/19/[address] [facility] [address]: Desirae Guzmán COMP: 06/19/24 ENTERED: 06/19/24 [facility] DR: ORDERED: MICARU Test Result Flag Reference Creat, Ur 379.74 mg/dL Microalbumin Ur 189.0 mg/L Alb/Creat Ratio 49.7 H <30 ug/mg cr Albumin/Creatinine Ratio Reference Ranges: Normal: < 30 ug/mg creatinine Microalbuminuria: 30 - 300 ug/mg creatinine Clinical Albuminuria: > 300 ug/mg creatinine [facility] [place], [place] [address]Urfouwiclshtvljbom Report Draft Patient: Bee RiveraMR#: [id number]: 1945cct:[id number]/Sex: 78 / FADM Date: 06/19/24Loc: [place] Dr: Desirae PEÑA Ordering Physician: Desirae Guzmán Date of Service: 06/19/24 Procedure(s): ECG 12 lead EKG Accession Number(s): [id number] cc: ~ Test Reason : pre op Blood Pressure : */* mmHG Vent. Rate : 57 BPM Atrial Rate : 57 BPM P-R Int : 168 ms QRS Dur : 82 ms QT Int : 430 ms P-R-T Axes : * 13 75 degrees QTcB Int : 418 ms Sinus bradycardia Otherwise normal ECG No previous ECGs available Referred By: Desirae Guzmán DD/ 1046TD/TT: 06/19/24 1128Transcriptionist: Coding Level of Care Code Est Pt Level 5 (91906) Complex EM visit Add On G2211 Diagnoses Pre-operative clearance Z01.818 Hyperlipidemia associated with type 2 diabetes mellitus E11.69; E78.5 BMI 30.0-30.9,adult Z68.30 Obesity, Class I, BMI 30-34.9 E66.811 Coronary artery disease involving [place] coronary artery of [place] heart without angina pectoris I25.10 Associated angina: without angina Coronary Disease-Associated Artery/Lesion type: [place] artery [place] vs. transplanted heart: [place] heart Stage 3a chronic kidney disease N18.31 Chronic kidney disease stage 3 subtype: stage 3a (GFR 45-59) Hypertension complicating diabetes E11.59; I15.2 Additional Codes TAWANNA-7 Assessment Billing - TAWANNA-7 Assessment Tool: TAWANNA-7 Assessment 96126 ([id number]) PHQ-9 - 56517 - PHQ-9 Billing: Yes ([id number]) Assessment & Plan Assessment & Plan (1) Pre-operative clearance: Code(s): Z01.818 - Encounter for other preprocedural examination Plan: Medically cleared. (2) Hyperlipidemia associated with type 2 diabetes mellitus: Comment: LDL goal less than 70. Code(s): E11.69 - Type 2 diabetes mellitus with other specified complication; E78.5 - Hyperlipidemia, unspecified Category: Medical (3) BMI 30.0-30.9,adult: Code(s): Z68.30 - Body mass index [BMI] 30.0-30.9, adult Category: Medical (4) Obesity, Class I, BMI 30-34.9: Code(s): E66.811 - Obesity, class 1 Category: Medical (5) CAD (coronary artery disease): Comment: . Code(s): I25.10 - Atherosclerotic heart disease of [place] coronary artery without angina pectoris Category: Medical Qualifiers: Associated angina: without angina Coronary Disease-Associated Artery/Lesion type: [place] artery [place] vs. transplanted heart: [place] heart Qualified Code(s): I25.10 - Atherosclerotic heart disease of [place] coronary artery without angina pectoris (6) CKD (chronic kidney disease) stage 3, GFR 30-59 ml/min: Code(s): N18.30 - Chronic kidney disease, stage 3 unspecified Category: Medical Qualifiers: Chronic kidney disease stage 3 subtype: stage 3a (GFR 45-59) Qualified Code(s): N18.31 - Chronic kidney disease, stage 3a (7) Hypertension complicating diabetes: Comment: Goal less than 130/80, on losartan 25 mg p.o. daily, carvedilol 6.25 mg p.o. b.i.d.. Blood pressure at goal. Continue Code(s): E11.59 - Type 2 diabetes mellitus with other circulatory complications; I15.2 - Hypertension secondary to endocrine disorders Category: Medical Plan . Orders: Orders Lipid Panel Today E11.69 - Type 2 diabetes mellitus with other specified complication, E78.5 - Hyperlipidemia, unspecified ECG 12 lead EKG Today Z01.818 - Encounter for other preprocedural examination Patient Instructions: - Attend the lab for blood work and the hospital for EKG as directed. - Proceed to the front desk attendant, then to the lab, and finally to the hospital for preoperative tests. - Expect contact only if test results indicate an issue preventing surgery clearance. - Inform spouse of the clearance update and return for a follow-up as scheduled.
[2024-06-19 09:14] VITALS: BP 142/76; PULSE 61; RESP 13; O2SAT 99; BMI 30.1
[2024-06-19 09:33] VITALS: BP 130/62
== END 2024-06-19 09:37 | disposition home or self-care (01) ==
PROVIDERS: PCP Nurse Practitioner Family; Visit Provider Nurse Practitioner Family
DX: Z01.818 Encounter for other preprocedural examination (principal); E11.69 Type 2 diabetes mellitus with other specified complication; E78.5 Hyperlipidemia, unspecified; Z68.30 Body mass index [BMI] 30.0-30.9, adult; E66.811 Obesity, class 1; I25.10 Atherosclerotic heart disease of native coronary artery without angina pectoris; N18.31 Chronic kidney disease, stage 3a; E11.59 Type 2 diabetes mellitus with other circulatory complications; I15.2 Hypertension secondary to endocrine disorders

== ENCOUNTER → 2024-06-19 09:03 | Outpatient (REF) | payer OTHER, SELFPAY ==
--- NOTE | 2024-06-19 10:41 | ECG_ITS ---
Test Reason : pre op Blood Pressure : */* mmHG Vent. Rate : 57 BPM Atrial Rate : 57 BPM P-R Int : 168 ms QRS Dur : 82 ms QT Int : 430 ms P-R-T Axes : * 13 75 degrees QTcB Int : 418 ms Sinus bradycardia Otherwise normal ECG No previous ECGs available Referred By: Desirae Guzmán Electronically Signed By: Jag Banda
== END ==
LOC: HO.CARD 09:03
PROVIDERS: PCP Nurse Practitioner Family; Visit Provider Nurse Practitioner Family
DX: Z01.818 Encounter for other preprocedural examination (principal)
CPT/HCPCS: 93005; 96127

== ENCOUNTER 2024-06-19 09:45 | Outpatient (REF) | payer OTHER, SELFPAY ==
[2024-06-19 11:38] LABS: Alanine Aminotransferase 11 U/L (0-31); Albumin Level 4.3 g/dL (3.5-5.0); Alkaline Phosphatase 80 U/L (39-117); Anion Gap 12 (12-20); Aspartate Amino Transferase 25 U/L (5-31); Bilirubin Total 0.6 mg/dL (0.0-1.0); Blood Urea Nitrogen 23 mg/dL (9-16); Calcium 9.1 mg/dL (8.4-10.2); Carbon Dioxide 22 mmol/L (22-29); Chloride 113 mmol/L (96-108); Cholesterol 98 mg/dL (<200); Estimated Glomerular Filt Rate 45; Glucose Random 135 mg/dL (60-115); HDL Cholesterol 42 mg/dL (>40); LDL Cholesterol Calculated 32 mg/dL (<100); Potassium 4.8 mmol/L (3.3-5.1); Sodium 142 mmol/L (135-145); Total Protein 7.5 g/dL (6.5-8.0); Triglycerides 122 mg/dL (<150)
[2024-06-19 11:57] LABS: Creatinine Urine 379.74 mg/dL; Microalbum/Creatinine Ratio Ur 49.7 ug/mg cr (<30)
== END 2024-06-19 09:46 | disposition home or self-care (01) ==
LOC: HO.WFDLDS 09:45
PROVIDERS: Visit Provider Nurse Practitioner Family
DX: E11.69 Type 2 diabetes mellitus with other specified complication (principal); E78.5 Hyperlipidemia, unspecified; E11.59 Type 2 diabetes mellitus with other circulatory complications; I15.2 Hypertension secondary to endocrine disorders; E11.51 Type 2 diabetes mellitus with diabetic peripheral angiopathy without gangrene; I70.209 Unspecified atherosclerosis of native arteries of extremities, unspecified extremity
CPT/HCPCS: 36415; 80053; 80061; 82043; 82570

== ENCOUNTER → 2024-06-19 10:41 | Outpatient (BNV) | payer OTHER, SELFPAY | PROVIDERS: PCP Nurse Practitioner Family; Visit Provider Internal Medicine Cardiovascular Disease | DX: R00.1 Bradycardia, unspecified (principal) | CPT/HCPCS: 93010 ==

== ENCOUNTER 2024-07-16 10:25 | Outpatient (AMB) | payer OTHER, SELFPAY ==
--- NOTE | 2024-07-16 10:35 | A.OFFPC_ITS ---
Vital Signs 07/16/24 10:37 Height 5 ft 2 in Weight 163 lb 4 oz BMI 29.9 BP 106/64 Blood Pressure Location Rt brachial Position Sitting Respiration 14 Pulse 59 Pulse Source Pulse Oximeter Pulse Oximetry (%) 99 Oxygen Delivery Method Room Air Intake Visit Reasons: 4 months routine fu 30 min Intake Note: Follow up. Needs refill on metformin Private Security Guard Required: No Allergies No Known Allergies Allergy (Verified 07/16/24 11:04) Medication List - Last Reconciled 07/16/24 by ANDREA Hairston- blood sugar diagnostic (OneTouch Ultra Test strips) As directed blood sugar diagnostic (FreeStyle Lite Strips) As directed blood-glucose meter (FreeStyle Lite Meter kit) As directed carvedilol 6.25 mg PO BID fluticasone propionate 50 mcg/actuation 1 spray intranasal BID lancets (FreeStyle Lancets) As directed lisinopril 20 mg PO DAILY metformin ER 1,000 mg (2 x 500 mg) PO BID 90 days rosuvastatin 20 mg PO DAILY Tobacco use date assessed: 12/29/23 Dental Screening Dental Screen Date: 12/29/23 HPI HPI Comments History of Present Illness Details 78 y/o F renal stones, BLE edema, obesit y, HTN, DM2, Rheumatic fever in childhood, HLD, OA, Urinary incont, glaucoma, ckd 3a, CAD WITH SEVERE CALCIFICATIONS OF CHEST, CHF, pulmonary hypertension, peripheral neuropathy s/p TKR 2012 bilat, s/p bilat cataract extraction 07/2024 Health Maintenance: Colon reports done 2020 Mammo 2022 PAP DEXA DME records requested Tdap Flu declined 03/2024 Echocardiogram 02/07/2023 mild concentric left ventricular hypertrophy, grade 1 mild diastolic dysfunction with impaired LV relaxation, ejection fraction 55- 60%, mild mitral regurgitation Specialists: Urology - annual f/u next 08/[address] [place]> first appt [facility] 09/2024 Ophthalmology Here today for routine follow up of chronic conditions. She is tolerating compliant of all of her medications. She states that her blood sugars are averaging around 130 mg/dL. Her A1c did come back at 6.6%. She denies any hyper or hypoglycemia. Denies any urinary complaints. Reports decreased appetite. Very active at home. Lipids: on rosuvastatin which she states that she was taking and tolerating well. Renal stones - may need new referral, but @ this time wants to hold off, next appt 08/2024 HTN/CAD: She denies any cardiac complaints. She denies any chest pain, shortness of breath. She reports that the edema in bilateral lower extremities is good. She was able to go up and down the stairs without wheezing or shortness of breath. She is also not having any exertional chest pain. Does c/o some dry throat/cough d/t ACEI using lozenge and h20 with + effect She is taking aspirin daily. She does complain of some senile purpura. Her seasonal allergies are better improve with the use of Flonase Exam: awake alert younger than stated age pleasant and cooperative scleras nonicteric bilat MMM RRR LS CTAB Abd soft nontender BLE hairless, decreased PP, + varicose veins, no pedal edema bilat,nails thickened, abnormal vibratory and monofilament bilat worse on L great toe Mood and affect appropriate I discussed with the patient her current management of Type 2 Diabetes Mellitus, noting the improvement in glycemic control, as evidenced by her reduced A1c levels. We reviewed her medication regimen, agreeing that her current dose of metformin is appropriate. I refilled her metformin prescription and confirmed she did not require additional diabetic testing supplies or a rosuvastatin refill at this time. We addressed her insurance challenges with her Uro, should insurance be accepted. I emphasized the importance of continued home blood sugar monitoring and dietary intake, encouraging healthier patterns to prevent further weight loss. For Type 2 Diabetes Mellitus, her condition remains well-managed with metformin, and we will continue the current dosage. She should keep up regular blood glucose monitoring to capture any fluctuations, especially given her reported lack of appetite. For Hyperlipidemia, the management with rosuvastatin is ongoing, and no immediate adjustments are needed. Presbyopia requires the acquisition of glasses for reading or near tasks. The patient is encouraged to continue using her halo magnifying device or acquire prescription glasses to aid daily activities. Hypertension management remains unchanged; follow-up with cardiology. For her history of kidney stones, we discussed a referral to the uro logy team within our network should insurance issues persist. Her care plan includes maintaining adequate hydration and pain management, if necessary. Prior to her next appointment, I advised routine blood work to assess her overall metabolic and renal function. Plan Continue all medications as currently prescribed RTO 4-6 months routine fu sooner PRN This note is constructed using voice recognition software. While every effort has been made to ensure accuracy in refuse laborer, still errors may have been included Sometimes, these errors may affect the content or meaning of the given sentence . Total time spent caring for the patient today was 47 minutes. This includes time spent before the visit reviewing the chart, time spent during the visit, and time spent after the visit on documentation [facility] Surgical History (Updated 11/06/23 @ 13:45 by Desirae Guzmán, [facility]) History of knee replacement Social History (Updated 12/29/23 @ 10:13 by Eric Álvarez [facility]) Housing: Apartment Patient Tobacco Use Status: Never used Tobacco e-Cigarette/Vaping Use: Never Used Second Hand Smoke Exposure: No service: No Current occupational status: retired Cognitive needs: No Hearing needs: No Vision needs: Yes Questionnaire PHQ-9 Over the last 2 weeks, how often have you been bothered by any of the following problems? 1. Little interest or pleasure in doing things: not at all 2. Feeling down, depressed, or hopeless: not at all 3. Trouble falling or staying asleep, or sleeping too much: not at all 4. Feeling tired or having little energy: not at all 5. Poor appetite or overeating: not at all 6. Feeling bad about yourself - or that you are a failure or have let yourself or your family down: not at all 7. Trouble concentrating on things, such as reading the newspaper or watching television: not at all 8. Moving or speaking so slowly that other people could have noticed. Or the opposite - being so fidgety or restless that you have been moving around a lot more than usual: not at all 9. Thoughts that you would be better off or of hurting yourself in some way: not at all Total score: 0 Depression Screening Interpretation: Negative Depression Screening Done: Yes 97739 - PHQ-9 Billing: Yes Source: Developed by Drs. Kenn Landa, Heidi Fernandez, Eduardo Gold and colleagues, with an educational hesham from [employer]. Thrive Questionnaire Date Thrive assessed: 07/16/24 I am a: Patient What is your living situation today?: I have a steady place to live Within the past 12 months, did the food you bought not last and you didn't have the money to get more?: Never true Within the past 12 months, did you worry whether your food would run out before you got money to buy more?: Never true Do you have trouble paying for medicines?: Yes Do you have trouble getting transportation to medical appointments?: No Do you have trouble paying your heating and electricity bill?: No Do you have trouble taking care of your child, family member or friend?: No Do you have trouble with day-to-day activities such as bathing, preparing meals, shopping, managing finances, etc.?: I choose not to answer this question Are you currently unemployed and looking for a job?: No Are you interested in more education?: No Please select the resources that you would like help with: Paying for medicine Currently or been in a relationship where the following occur: No concerns reported THRIVE Score: 0 AUDIT C Alcohol Use Questionnaire (AUDIT-C) 1. How often do you have a drink containing alcohol?: Never 3. How often do you have six or more drinks on one occasion?: Never Total Score: 0 TAWANNA-7 AMB Questionnaire TAWANNA-7 Date TAWANNA - 7 assessed: 06/19/24 Source: Developed by Drs. Kenn Landa, Heidi Fernandez, Eduardo Gold and colleagues, with an educational hesham from [employer]. Physical exam (Primary Care) Vital Signs: Last Vital Signs Pulse 59 07/16/24 10:37 Resp 14 07/16/24 10:37 BP 106/64 07/16/24 10:37 Pulse Ox 99 07/16/24 10:37 Oxygen Delivery Method Room Air 07/16/24 10:37 BMI result Body Mass Index 29.9 Tobacco/Smoking Status: Tobacco use Status Tobacco use date assessed 12/29/23 07/16/24 10:42 Patient Tobacco Use Status Never used Tobacco 07/16/24 10:42 e-Cigarette/Vaping Use Never Used 07/16/24 10:42 PHQ-9: PHQ-9 Score PHQ-9: Total score 0 07/16/24 13:59 Depression Screening Interpretation: Negative Thrive Assessment: Date of Thrive Assessment Date Thrive assessed 07/16/24 07/16/24 10:44 Currently or been in a relationship where the following occur: No concerns reported Office Procedures Diabetic Foot Exam G9226 - Diabetic Foot Exam Results AMB Hemoglobin A1c AMB Hemoglobin A1c 6.6 % Last Edit by Stephanie Viveros CMA on 07/16/24 10:48 Results Reviewed Results Reviewed: Laboratory Last Values Hgb A1c (Clinic) 6.6 % (4.0-6.0) H 07/16/24 10:42 Coding Level of Care Code Est Pt Level 5 (10804) Complex EM visit Add On G2211 Diagnoses Diabetes mellitus type 2 with atherosclerosis of arteries of extremities E11.51; I70.209 Hypertension complicating diabetes E11.59; I15.2 Hyperlipidemia associated with type 2 diabetes mellitus E11.69; E78.5 PVD (peripheral vascular disease) I73.9 Stage 3a chronic kidney disease N18.31 Chronic kidney disease stage 3 subtype: stage 3a (GFR 45-59) Chronic systolic congestive heart failure I50.22 Heart failure chronicity: chronic Heart failure type: systolic Coronary artery disease involving [place] coronary artery of [place] heart without angina pectoris I25.10 Associated angina: without angina Coronary Disease-Associated Artery/Lesion type: [place] artery [place] vs. transplanted heart: [place] heart Diabetic peripheral neuropathy E11.42 CPT Codes Diabetic Foot Exam - CPT: G9226 - Diabetic Foot Exam ([id number]) Additional Codes PHQ-9 - 87085 - PHQ-9 Billing: Yes ([id number]) Assessment & Plan Assessment & Plan (1) Diabetes mellitus type 2 with atherosclerosis of arteries of extremities: Comment: On metformin ER 1000 mg p.o. b.i.d., We will need to obtain records for diabetic eye exam. Code(s): E11.51 - Type 2 diabetes mellitus with diabetic peripheral angiopathy without gangrene; I70.209 - Unspecified atherosclerosis of [place] arteries of extremities, unspecified extremity Category: Medical (2) Hypertension complicating diabetes: Comment: Goal less than 130/80, on losartan 25 mg p.o. daily, carvedilol 6.25 mg p.o. b.i.d.. Blood pressure at goal. Continue Code(s): E11.59 - Type 2 diabetes mellitus with other circulatory complications; I15.2 - Hypertension secondary to endocrine disorders Category: Medical (3) Hyperlipidemia associated with type 2 diabetes mellitus: Comment: LDL goal less than 70. Code(s): E11.69 - Type 2 diabetes mellitus with other specified complication; E78.5 - Hyperlipidemia, unspecified Category: Medical (4) PVD (peripheral vascular disease): Code(s): I73.9 - Peripheral vascular disease, unspecified Category: Medical (5) CKD (chronic kidney disease) stage 3, GFR 30-59 ml/min: Code(s): N18.30 - Chronic kidney disease, stage 3 unspecified Category: Medical Qualifiers: Chronic kidney disease stage 3 subtype: stage 3a (GFR 45-59) Qualified Code(s): N18.31 - Chronic kidney disease, stage 3a (6) CHF (congestive heart failure): Code(s): I50.9 - Heart failure, unspecified Category: Medical Qualifiers: Heart failure chronicity: chronic Heart failure type: systolic Qualifi ed Code(s): I50.22 - Chronic systolic (congestive) heart failure (7) CAD (coronary artery disease): Comment: . Code(s): I25.10 - Atherosclerotic heart disease of [place] coronary artery without angina pectoris Category: Medical Qualifiers: Associated angina: without angina Coronary Disease-Associated Artery/Lesion type: [place] artery [place] vs. transplanted heart: [place] heart Qualified Code(s): I25.10 - Atherosclerotic heart disease of [place] coronary artery without angina pectoris (8) Diabetic peripheral neuropathy: Code(s): E11.42 - Type 2 diabetes mellitus with diabetic polyneuropathy Category: Medical Plan . Orders: Orders AMB Hemoglobin A1c Today E11.51 - Type 2 diabetes mellitus with diabetic peripheral angiopathy without gangrene, I70.209 - Unspecified atherosclerosis of [place] arteries of extremities, unspecified extremity Vitamin B12 and Folate 6 Months E11.42 - Type 2 diabetes mellitus with diabetic polyneuropathy, E11.51 - Type 2 diabetes mellitus with diabetic peripheral angiopathy without gangrene, E11.59 - Type 2 diabetes mellitus with other circulatory complications, E11.69 - Type 2 diabetes mellitus with other specified complication, E78.5 - Hyperlipidemia, unspecified, I15.2 - Hypertension secondary to endocrine disorders, I25.10 - Atherosclerotic heart disease of [place] coronary artery without angina pectoris, I50.22 - Chronic systolic (congestive) heart failure, I70.209 - Unspecified atherosclerosis of [place] arteries of extremities, unspecified extremity, I73.9 - Peripheral vascular disease, unspecified, N18.31 - Chronic kidney disease, stage 3a Lipid Panel 6 Months E11.42 - Type 2 diabetes mellitus with diabetic polyneuropathy, E11.51 - Type 2 diabetes mellitus with diabetic peripheral angiopathy without gangrene, E11.59 - Type 2 diabetes mellitus with other circulatory complications, E11.69 - Type 2 diabetes mellitus with other specified complication, E78.5 - Hyperlipidemia, unspecified, I15.2 - Hypertension secondary to endocrine disorders, I25.10 - Atherosclerotic heart disease of [place] coronary artery without angina pectoris, I50.22 - Chronic systolic (congestive) heart failure, I70.209 - Unspecified atherosclerosis of [place] arteries of extremities, unspecified extremity, I73.9 - Peripheral vascular disease, unspecified, N18.31 - Chronic kidney disease, stage 3a Comprehensive Met. Panel 6 Months E11.42 - Type 2 diabetes mellitus with diabetic polyneuropathy, E11.51 - Type 2 diabetes mellitus with diabetic peripheral angiopathy without gangrene, E11.59 - Type 2 diabetes mellitus with other circulatory complications, E11.69 - Type 2 diabetes mellitus with other specified complication, E78.5 - Hyperlipidemia, unspecified, I15.2 - Hypertension secondary to endocrine disorders, I25.10 - Atherosclerotic heart disease of [place] coronary artery without angina pectoris, I50.22 - Chronic systolic (congestive) heart failure, I70.209 - Unspecified atherosclerosis of [place] arteries of extremities, unspecified extremity, I73.9 - Peripheral vascular disease, unspecified, N18.31 - Chronic kidney disease, stage 3a Microalbumin, Random (w Creat) 6 Months E11.42 - Type 2 diabetes mellitus with diabetic polyneuropathy, E11.51 - Type 2 diabetes mellitus with diabetic peripheral angiopathy without gangrene, E11.59 - Type 2 diabetes mellitus with other circulatory complications, E11.69 - Type 2 diabetes mellitus with other specified complication, E78.5 - Hyperlipidemia, unspecified, I15.2 - Hypertension secondary to endocrine disorders, I25.10 - Atherosclerotic heart disease of [place] coronary artery without angina pectoris, I50.22 - Chronic systolic (congestive) heart failure, I70.209 - Unspecified atherosclerosis of [place] arteries of extremities, unspecified extremity, I73.9 - Peripheral vascular disease, unspecified, N18.31 - Chronic kidney disease, stage 3a Medications: Refilled metformin ER 1,000 mg (2 x 500 mg) PO BID 360 tabs 1RF 90 days
[2024-07-16 10:37] VITALS: BP 106/64; PULSE 59; RESP 14; O2SAT 99; BMI 29.9
--- OUTSIDE RECORDS SUMMARY | 2024-07-16 11:39 | XMS_ITS | Clinical Summary ---
Author Organization [facility] Facility Address [address] [place] [id number] Care Team Providers Care Bolt Machine Operator Name Role Phone Unavailable Primary Care Provider Unavailabl e Allergies No known active allergies Medications metFORMIN (GLUCOPHAGE) 500 MG tablet Take 1,000 mg by mouth in the morning and 1,000 mg in the evening. Take with meals. 2 Active glyBURIDE (DIABETA) 5 MG tablet Take 5 mg by mouth in the morning and 5 mg in the evening. 2 Active atorvastatin (LIPITOR) 80 MG tablet Take 40 mg by mouth 1 (one) time each day 2 Active carvedilol (COREG) 6.25 MG tablet Take 6.25 mg by mouth in the morning and 6.25 mg in the evening. Take with meals. 2 Active furosemide (LASIX) 40 MG tablet Take 40 mg by mouth 1 (one) time each day 2 Active clobetasol (TEMOVATE) 0.05 % cream APPLY TOPICALLY TO THE AFFECTED AREA TWICE DAILY SPARINGLY NEEDED 2 Active LORazepam (ATIVAN) 0.5 MG tablet Take 0.5 mg by mouth every 8 (eight) hours if needed for anxiety Active albuterol HFA (PROVENTIL HFA;VENTOLIN HFA) 108 (90 Base) MCG/ACT inhaler Inhale 2 puffs every 6 (six) hours if needed for wheezing Active Family History Medical History Relation Comments Cancer Brother Parkinsonism Father Alzheimer's disease Mother Relation Status Comments Brother Father Mother Social History Tobacco Use Types Packs/Day Years Used Date Smoking Tobacco: Never Smokeless Tobacco: Never Tobacco Cessation:Counseling Given: No Alcohol Use Standard Drinks/Week Comments Never 0 (1 standard drink = 0.6 oz pur e alcohol) Comments Unknown Sex and Gender Information Value Date Recorded Sex Assigned at Not on file Legal Sex Female 5:26 PM EST Gender Identity Not on file Sexual Orientation Not on file Last Filed Vital Signs Vital Sign Reading Time Taken Comments Blood Pressure 144/73 01/05/2022 3:55 PM EDT Pulse 86 01/05/2022 3:55 PM EDT Temperature - - Respiratory Rate - - Oxygen Saturation - - Inhaled Oxygen Concentration - - Weight 83 kg (183 lb) 01/05/2022 3:55 PM EDT Height - - Body Mass Index - - Plan of Treatment Health Maintenance Due Date Last Done Comments Pneumococcal Vaccine: 65+ Ye ars (1 of 2 - PCV) 10/09/1951 Influenza Vaccine (#1) 2024 Hepatitis B Vaccine Aged Out No longe r eligible based on patient's age to complete this topic Insurance
--- OUTSIDE RECORDS SUMMARY | 2024-07-16 11:39 | XMS_ITS | Clinical Summary ---
Author Organization [facility] Address [address] [place] [phone] Phone Care Team Providers Care Research Editor Name Role Phone Hakeem Michael Primary Care Provider [phone] Allergies No known active allergies Medications losartan (COZAAR) 25 mg tablet Take 1 tablet (25 mg total) by mouth 1 (one) time each day. 3 Active furosemide (LASIX) 40 mg tablet Take 1 tablet (40 mg total) by mouth 1 (one) time each day. 2 Active carvediloL (COREG) 6.25 mg tablet Take 1 tablet (6.25 mg total) by mouth 2 (two) times a day with meals. 2 Active finerenone (Kerendia) 10 mg tablet Take 1 tablet by mouth 1 (one) time each day. 3 Active metFORMIN (GLUCOPHAGE) 500 mg tablet Take 2 tablets (1,000 mg total) by mouth 2 (two) times a day. 2 Active blood-glucose meter kit 1 (one) time each day. to check blood sugar 3 Active lancets 30 gauge misc 1 Units by Not Applicable route 1 (one) time each day. 3 Active Active Problems Problem Noted Date Diagnosed Date Acute on chronic combined sy stolic and diastolic congestive heart failure 09/06/2021 Acute systolic heart failure 09/06/2021 CKD (chronic kidney disease) stage 3, GFR 30-59 ml/min 10/28/2020 Right knee DJD 01/09/2014 Morbid obesity 06/18/2013 Overview (06/07/2024): BMI 41.21 on 06/03/13. Type 2 diabetes mellitus with eye manifestations 02/24/2011 Overview (06/07/2024): Bilateral nuclear sclerosis. DM (diabetes mellitus) type II uncontrolled with eye manifestation Microalbuminuria 02/24/2011 Type 2 diabetes mellitus wit h diabetic nephropathy, without long-term current use of insulin 02/24/2011 Overview (06/07/2024): Peripheral neuropathy. Mixed hyperlipidemia 03/05/2010 Obesity, unspecified 04/24/2009 Duodenal ulcer due to Helicobacter pylori 2008 Overview (06/07/2024): Treated for h pylori 2003. Spinal stenosis, lumbar rebeca on, without neurogenic claudication 11/04/2008 Essential hypertension, benign 07/15/2005 Immunizations Name Administration Dates Next Due Influenza Quadravalent, MDCK , 0.5ml, preservative free (Flucelvax) 6mo and older 05/08/2018 Influenza Quadravalent, MDCK , 0.5ml, with preservative (Flucelvax) 6mo and older 04/20/2017 Influenza trivalent, 0.5mL ( Fluad) 65yo and older 04/22/2021,04/05/2019,03/10/2016 Influenza trivalent, 0.5mL, preservative free (Fluarix; FluLaval; Fluzone) ages 6mo and older (Afluria) 3 years and older 06/08/2015,03/04/2013,03/14/2012,05/11,03/05/2010,03/27/2007 PPD Test 06/10/2013 Pfizer SARS-CoV-2 COVID-19, mRNA, LNP-S, preservative free 09/22/2020 Pneumococcal conjugate 13 va lent (Prevnar 13, PCV13) 2mo and older 10/20/2014 Pneumococcal polysaccharide 23 valent (Pneumovax 23) 2yo and older 12/10/2015,11/04/2008 Td Tetanus diptheria (Tdvax) 7yo and older 04/05/2019 Tdap Tetanus diptheria acell ular pertussis (Boostrix; Adacel) 7yo and older 11/04/2008 Zoster Live 03/05/2010 Surgical History Surgery Date Site/Laterality Comments TUBAL LIGATION PROCEDURE: HISTORICAL TUBAL LIGATION CHOLECYSTECTOMY PROCEDURE: HISTORICAL CHOLECYSTECTOMY OTHER SURGICAL HISTORY PROCEDURE: HISTORY OTHER; COMMENT: spinalstenosis surgery dr archer KNEE ARTHROSCOPY 04/14/2014 Right PROCEDURE: DE ARTHROSCOPY AID TX SPINE&/FX KNEE W/O FIXJ; COMMENT: Kenn De Luna TOTAL KNEE ARTHROPLASTY PROCEDURE: HISTORICAL TOTAL KNEE REPLACE; COMMENT: right michael left juan jose COLONOSCOPY 2003 PROCEDURE: HISTORICAL COLONOSCOPY; COMMENT: neg UPPER GASTROINTESTINAL ENDOSCOPY 2003 PROCEDURE: DE UPPER GI ENDOSCOPY PERFORMED; COMMENT: duodenal ulcers and h. pylori infection; rx'd. COLONOSCOPY 2014 PROCEDURE: HISTORICAL COLONOSCOPY; COMMENT: no polyps CATARACT EXTRACTION 10/2020 Right PROCEDURE: HISTORICAL CATARACT REMOVAL BREAST BIOPSY 2014ish Right PROCEDURE: BX BREAST; PERC NEEDLE CORE W/IMAG GUID; COMMENT: rt. breast bx.-benign findings CHOLECYSTECTOMY PROCEDURE: DE LAPAROSCOPY SURG CHOLECYSTECTOMY LITHOTRIPSY 07/25/2023 PROCEDURE: HISTORICAL LITHOTRIPSY; COMMENT: laser lithotripsy, stent removal dr. mccann Medical History Medical History Date Comments Type II or unspecified type diabetes mellitus with unspecified complication, not stated as uncontrolled DX:Type II or unspecified ty pe diabetes mellitus with unspecified complication, not stated as uncontrolled Other unspecified back disorder DX:Other unspecified back disorder Duodenal ulcer due to Helico bacter pylori 11/04/2008 DX:Duodenal ulcer due to Helicobacter pylori Obesity, unspecified 04/24/2009 DX:Obesity, unspecified Unspecified essential hypertension DX:Unspecified essential hypertension Cervical spondylosis without myelopathy DX:Cervical spondylosis with out myelopathy Hyperlipidemia DX:Hyperlipidemi a Family History Medical History Relation Name Comments Cancer of Small Bowel Brother 1 Parkinson's Disease Father Alzheimer's disease Mother Blindness Neg Hx Breast cancer Neg Hx Cataracts Neg Hx Glaucoma Neg Hx Macular degeneration Neg Hx Strabismus Neg Hx Relation Name Status Comments Brother 1 overdose Brother 2 over dose Daughter 1 Alive Daughter 2 Alive Daughter 3 Alive Father (Age 82) parkinsons Mother (Age 86) ALZHEIMERS Son Alive Social History Tobacco Use Types Packs/Day Years Used Date Smoking Tobacco: Former Cigarettes 0.1 12 0 06/05/1967 - 06/05/1979 Smokeless Tobacco: Never Alcohol Use Standard Drinks/Week Comments No 0 (1 standard drink = 0.6 oz pur e alcohol) Comments Unknown Sex and Gender Information Value Date Recorded Sex Assigned at Not on file Legal Sex Female 5:07 AM EST Gender Identity Not on file Sexual Orientation Not on file Obstetrics History Last Filed Vital Signs Vital Sign Reading Time Taken Comments Blood Pressure 132/70 01/27/2023 10:56 AM EDT Pulse 70 01/27/2023 10:56 AM EDT Temperature - - Respiratory Rate - - Oxygen Saturation - - Inhaled Oxygen Concentration - - Weight 84.7 kg (186 lb 12.8 oz) 023 10:56 AM EDT Height 157.5 cm (5' 2 ) 01/27/2023 10:5 6 AM EDT Body Mass Index 34.17 01/27/2023 10:56 AM EDT Plan of Treatment Upcoming Encounters Date Type Department Care Team (Late st Contact Info) Description 01/22/2025 8:30 AM EDT Appointment Radiology Department [address] [phone] Health Maintenance Due Date Last Done Comments Diabetes: Annual Foot Exam 10/09/1955 Diabetes: Annual Retina Eye Exam 10/09/1957 Zoster Vaccines (2 of 3) 04/30/2010 03/05/2010 DTaP,Tdap,and Td Vaccines (3 - Td or Tdap) 10/04/2019 04/05/2019, 11/04/2008 COVID-19 Vaccine (3 - Pfizer risk series) 10/20/2020 09/22/2020, 08/31/2020 Depression Screening 05/14/2022 Falls Risk Assessment 05/14/2022 Social Influencers of Health Screening 05/14/2022 RSV Immunization Patients 60+ Years Old (1 - 1-dose 75+ series) 10/09/2022 Diabetes: Blood Sugar Control Test (HGBA1C) 07/30/2023 01/27/2023 Diabetes: Annual Urine Albumin-Creatinine Ratio (uACR) 01/28/2024 01/27/2023 Diabetes: Annual GFR (Glomerular Filtration Rate) 01/28/2024 01/27/2023 Hypertension/CHF/CAD Annual BMP Blood Test 01/28/2024 01/27/2023 Influenza Vaccine (#1) 2024 , 04/05/2019, 05/08/2018, Additional history exists Cholesterol Screening (Lipid Panel) 01/28/2028 01/27/2023 Osteoporosis Screening (Bone Density Screening) 01/11/2033 01/11/2023, 06/18/2020, 11/28/2017 Hepatitis C Screening Completed 05/30/2013 Pneumococcal Vaccine: 50+ Years Completed 12/10/2015, 10/20/2014, 11/04/2008 Breast Cancer Screening Discontinued 01/18/20 24, 01/18/2024, 01/11/2023, Additional history exists HIB Vaccines Aged Out No longer eligi ble based on patient's age to complete this topic HPV Vaccines Aged Out No longer eligi ble based on patient's age to complete this topic Hepatitis A Vaccines Aged Out No long er eligible based on patient's age to complete this topic Hepatitis B Vaccines Aged Out No long er eligible based on patient's age to complete this topic IPV Vaccines Aged Out No longer eligi ble based on patient's age to complete this topic MMR Vaccines Aged Out No longer eligi ble based on patient's age to complete this topic Meningococcal ACWY Vaccine Aged Out N o longer eligible based on patient's age to complete this topic Meningococcal B Vacine Aged Out No lo nger eligible based on patient's age to complete this topic RSV Immunization Patients Under 20 months Aged Out No longer eligible based on patient's age to complete this topic Varicella Vaccines Aged Out No longer eligible based on patient's age to complete this topic Procedures Procedure Name Priority Date/Time Associated Diagnosis Comments SCREENING MAMMOGRAPHY BI 2-VIEW BREAST INC CAD Routine 01/18/2024 8:08 AM EDT Encounter for screening mammogram for malignant neoplasm of breast URINE ALBUMIN CREATININE RATIO Routine 01/27/2023 ANNUAL BMP BLOOD TEST Routine 01/27/2023 HEMOGLOBIN A1C Routine 01/27/2023 LIPID PANEL Routine 01/27/2023 DXA BONE DENSITY STUDY 1+ SITS AXIAL SKEL Routine 01/11/2023 2:17 PM EDT Type 2 diabetes mellitus with diabetic nephropathy (CMS/HCC) Acute on chronic combined systolic (congestive) and diastolic (congestive) heart failure (CMS/HCC) Essential (primary) hypertension Acute systolic (congestive) heart failure (CMS/HCC) Morbid (severe) obesity due to excess calories (CMS/HCC) Mixed hyperlipidemia Duodenal ulcer, unspecified as acute or chronic, without hemorrhage or perforation Helicobacter pylori (H. pylori) as the cause of diseases classified elsewhere HEPATITIS C SCREENING Routine 05/30/2013 from Last 3 Months or Most Recently Relevant to Health Maintenance Results * SCREENING MAMMOGRAPHY BI 2-VIEW BREAST INC CAD (01/18/2024 8:08 AM EDT) Anatomical Region Laterality Modality Radiographic Judi ging 01/11/2023 2:45 PM EDT Narrative 01/18/2024 3:46 PM EDT This is a summary report. The complete report is available in the patient's medical record. If you cannot access the medical record, please contact the sending organization for a detailed fax or copy. Full field digital screening 2D C views and 3D tomosynthesis mammography, reviewed with CAD and compared to previous. The breasts are composed of fatty and fibroglandular tissue. ??No suspicious mass, architectural distortion or suspicious calcifications are identified. There are stable bilateral asymmetric opacities and calcifications. ??There is no new suspicious masses, microcalcifications or areas of architectural distortion. IMPRESSION: : No mammographic evidence of malignancy. BI-RADS 2, benign findings. 5 year breast cancer risk assessment 1.3 % Lifetime breast cancer risk assessment 2.7 % Breast cancer risk category Low (<15%) Procedure Note Melissa Valencia MD - 03/20/2024 This is a summary report. The complete report is available in thepatient's medical record. If you cannot access the medical record, pleasecontact the sending organization for a detailed fax or copy. Full field digital screening 2D C views and 3D tomosynthesis mammography,reviewed with CAD and compared to previous. The breasts are composed offatty and fibroglandular tissue. No suspicious mass, architecturaldistortion or suspicious calcifications are identified. There are stable bilateral asymmetric opacities and calcifications. Thereis no new suspicious masses, microcalcifications or areas of architecturaldistortion. IMPRESSION: : No mammographic evidence of malignancy. BI-RADS 2, benign findings. 5 year breast cancer risk assessment 1.3 % Lifetime breast cancer risk assessment 2.7 % Breast cancer risk category Low (<15%) Result [facility] Hakeem ZARAGOZA IMG XR PROCEDURES Final R esult * Urine Albumin Creatinine Ratio (01/27/2023) [facility] Urine Albumin Creatinine Ratio abstracted Result [facility] HEALTH MAINTENANCE Final Result * Annual BMP Blood Test (01/27/2023) [facility] Annual BMP Blood Test abstracted Result [facility] Final Result * (ABNORMAL) Hemoglobin A1c (01/27/2023) [facility] Hemoglobin A1C 8.1(A) <=6.5 % Blood Venous blood specimen / Unknown Result [facility] MD LAB BLOOD ORDERABLES Roseline l Result * (ABNORMAL) Lipid panel (01/27/2023) [facility] LDL/HDL Ratio 5(A) 0 - 4 Triglycerides 321(A) 0 - 150 mg/dL Cholesterol 231(A) 0 - 200 mg/dL HDL 51 >=40 mg/dL LDL Cholesterol 116(A) 0 - 100 mg/dL Blood Venous blood specimen / Unknown Result [facility] MD LAB BLOOD ORDERABLES Roseline l Result * DXA BONE DENSITY STUDY 1+ SITS AXIAL SKEL (01/11/2023 2:17 PM EDT) Anatomical Region Laterality Modality Bone Densitometr y 07/29/2022 11:2 1 AM EST Narrative 01/11/2023 5:54 PM EDT BONE DENSITY SCAN (DEXA) ? FINDINGS: Lumbar Spine T-score is 6.0. ?? (SD relative to 20-29 y/o adult) Z-score is 8.4. ??(SD relative to age matched peers) This is considered normal by WHO criteria. Left Hip T-score is 1.2. Z-score is 3.0. This is considered normal by WHO criteria. Comparison: 06/18/2020. ??No statistically significant change in left hip bone mineral density. IMPRESSION: IMPRESSION: Normal bone mineral density by WHO criteria. The [facility] recommends using National Osteoporosis Foundation (NOF) guidelines in treatment decisions related to osteoporosis. NOF guidelines suggest considering treatment for postmenopausal women and men aged 50 or older presenting with the following: History of hip or vertebral fracture. T-score = -2.5 (DXA) at the femoral neck, total hip, or spine, after appropriate evaluation to exclude secondary causes. Low bone mass (T-score between -1.0 and -2.5 at the femoral neck or spine) AND a 10-year probability of a hip fracture = 3% OR a 10-year probability of a major osteoporosis-related fracture = 20% based on the [place]-adapted WHO algorithm Please note that all treatment decisions require clinical judgment and consideration of individual patient factors, including patient preferences, co-morbidities, previous drug use, risk factors not captured in the FRAX model (e.g., frailty, falls, vitamin D deficiency, increased bone turnover, interval significant decline in bone density) and possible under- or over-estimation of fracture risk by FRAX. Optional alternative screening schedule based on jesusita Johnston., [facility] June 23, 2011 for patients with osteopenia (based on hip BMD T-score) is as follows: * ??advanced osteopenia (T scores -2.00 to -2.49), BMD testing every year * ??moderate osteopenia (T scores -1.50 to -1.99), BMD testing every 5 years mild osteopenia or normal BMD (T scores -1.50 and higher), BMD testing every 15 years Procedure Note Bridgett Byrnes MD - 07/10/2023 BONE DENSITY SCAN (DEXA) FINDINGS: Lumbar Spine T-score is 6.0. (SD relative to 20-29 y/o adult) Z-score is 8.4. (SD relative to age matched peers) This is considered normal by WHO criteria. Left Hip T-score is 1.2. Z-score is 3.0. This is considered normal by WHO criteria. Comparison: 06/18/2020. No statistically significant change in left hipbone mineral density. IMPRESSION: IMPRESSION: Normal bone mineral density by WHO criteria. The [facility] recommendsusing National Osteoporosis Foundation (NOF) guidelines in treatment decisions related toosteoporosis. NOF guidelines suggest considering treatment for postmenopausal women and menaged 50 or older presenting with the following: History of hip or vertebral fracture. T-score = -2.5 (DXA) at the femoral neck, total hip, or spine, afterappropriate evaluation to exclude secondary causes. Low bone mass (T-score between -1.0 and -2.5 at the femoral neck or spine)AND a 10-year probability of a hip fracture = 3% OR a 10-year probability of a majorosteoporosis-related fracture = 20% based on the [place]-adapted WHO algorithm Please note that all treatment decisions require clinical judgment andconsideration of individual patient factors, including patient preferences, co- morbidities,previous drug use, risk factors not captured in the FRAX model (e.g., frailty, falls, vitaminD deficiency, increased bone turnover, interval significant decline in bone density) andpossible under- or over-estimation of fracture risk by FRAX. Optional alternative screening schedule based on kiersten Johnston al., NEJMJanuary 2011 for patients with osteopenia (based on hip BMD T-score) is as follows: * advanced osteopenia (T scores -2.00 to -2.49), BMD testing every year * moderate osteopenia (T scores -1.50 to -1.99), BMD testing every 5years mild osteopenia or normal BMD (T scores -1.50 and higher), BMD testingevery 15 years Hakeem ZARAGOZA [facility] DXA PROCEDURES Final Result * Hepatitis C Screening (05/30/2013) Hepatitis C Screening abstracted us Historical Provider MD HEALTH MAINTENANCE Final Result from Last 3 Months or Most Recently Relevant to Health Maintenance Care Teams Research Editor Relationship Specialty Start Date End Date Hakeem Michael PA PCP - General Internal Medicine 10/28/20
== END 2024-07-16 14:11 | disposition home or self-care (01) ==
PROVIDERS: PCP Nurse Practitioner Family; Visit Provider Nurse Practitioner Family
DX: E11.51 Type 2 diabetes mellitus with diabetic peripheral angiopathy without gangrene (principal); I70.209 Unspecified atherosclerosis of native arteries of extremities, unspecified extremity; E11.59 Type 2 diabetes mellitus with other circulatory complications; E11.69 Type 2 diabetes mellitus with other specified complication; I73.9 Peripheral vascular disease, unspecified; N18.31 Chronic kidney disease, stage 3a; I50.22 Chronic systolic (congestive) heart failure; E11.42 Type 2 diabetes mellitus with diabetic polyneuropathy; I15.2 Hypertension secondary to endocrine disorders; E78.5 Hyperlipidemia, unspecified; I25.10 Atherosclerotic heart disease of native coronary artery without angina pectoris